=== PATIENT | female | born 2005 | race Caucasian/White ===

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

== ENCOUNTER → 2023-05-27 | Emergency (ER) | payer BC ==
[~2023-05-27] MED LIST: CEFTRIAXONE 1000 MG/VIAL ONE
--- OUTSIDE RECORDS SUMMARY | 2023-05-27 17:38 | XMS REPORT | Continuity of Care Document ---
Author Name Unknown Address [address] [facility] [address] [place] [address] [facility] thconnect Address [address] [facility] [place] [address] Care Team Providers Care Restaurant Hospitality Manager Name Role Phone PCP, PATIENT DOES NOT HAVE A Primary Care Physic reyes Unavailable JAMES PEREZ Attending Clinician Unavailable La Mueller Attending Clinician Unavailable NEO MADRID Attending Clinician UnavailNeo [place] Attending Clinician Jamse Perez MD Attending Clinician [facility] Attending Clinician Unavailable JAMES PEREZ Admitting Clinician Unavailable Payers Payer Name Policy Type Policy Number Effective Date Expirati on Date Source BCBS FED SELECT [id number] 2019 00:00:00 Problems Condition Name Condition Details Condition Category Status Onset Date Resolution Date Last Treatment Date Treating Clinician Comments Source 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 05-23 00:00: 00 [facility] Pelvic pain Pelvic pain Disease Active 05-23 00:00: 00 [facility] [id number] Obesity (BMI 35.0-39.9 without comorbidit y) Problem [facility] [id number] Vapes nicotine containing substance Problem [facility] Obese class II Body mass index (BMI) of 35 Problem [facility] [id number] Mild intermitte nt asthma without complicati on Problem [facility] [id number] Chronic tonsilliti s Problem [facility] Tobacco user Vaping nicotine dependence , tobacco product Problem [facility] [id number] Irregular periods Problem [facility] Allergies, Adverse Reactions, Alerts Allergy Name Allergy Type Status Severity Reaction(s) Onset Date Inactive Date Treating Clinician Comments Source Amoxicil bita Propensi ty to adverse reaction s Active Unknown - See comments 05-20 00:00: 00 [facility] Clarithr omycin Propensi ty to adverse reaction s Active Palpitations 05-20 00:00: 00 [facility] CLARITHR OMYCIN DRUG INGREDI Active Palpitations 05-20 00:00: 00 [facility] AMOXICIL BITA DRUG INGREDI Active Unknown-Cmnt 05-20 00:00: 00 [facility] clarithr omycin clarithr omycin Active , vomiting, high blood pressure [facility] NO KNOWN ALLERGIE S Drug Class Active [facility] Social History Social Habit Start Date Stop Date Quantity Comments Source History of Tobacco Use Light tobacco smoker [facility] Sexual orientation U [facility] Sex Assigned At 2005 00:00:00 2005 00:00:00 [facility] Smoking Status Start Date Stop Date Source Tobacco smoking consumption unknown [facility] Light tobacco smoker 2022-11-03 00:00:00 [facility] Medications Ordered Medication Name Filled Medication Name Start Date Stop Date Current Medication? Ordering Clinician Indication Dosage Frequency Signature (SIG) Comments Components Source valACYclovi r (VALTREX) 500 mg tablet 3- 00:00: 00 Yes [id number] 500mg Take 1 tablet by mouth in the morning and 1 tablet in the evening. For 3 days with onset of lesion [facility] valACYclovi r (VALTREX) 500 mg tablet 05-20 00:00: 00 Yes [id number] 500mg Take 1 tablet by mouth in the morning and 1 tablet in the evening. For 3 days with onset of lesion [facility] valACYclovi r (VALTREX) 500 mg tablet 05-20 00:00: 00 Yes [id number] 500mg Take 1 tablet by mouth in the morning and 1 tablet in the evening. For 3 days with onset of lesion [facility] valACYclovi r (VALTREX) 500 mg tablet 05-20 00:00: 00 Yes [id number] 500mg Take 1 tablet by mouth in the morning and 1 tablet in the evening. For 3 days with onset of lesion [facility] valACYclovi r (VALTREX) 500 mg tablet 05-20 00:00: 00 Yes [id number] 500mg Take 1 tablet by mouth in the morning and 1 tablet in the evening. For 3 days with onset of lesion [facility] valACYclovi r (VALTREX) 500 mg tablet 05-20 00:00: 00 Yes [id number] 500mg Take 1 tablet by mouth in the morning and 1 tablet in the evening. For 3 days with onset of lesion [facility] valACYclovi r (VALTREX) 500 mg tablet 05-20 00:00: 00 Yes [id number] 500mg Take 1 tablet by mouth in the morning and 1 tablet in the evening. For 3 days with onset of lesion [facility] Flovent HFA 110 MCG/ACT Flovent HFA 110 MCG/ACT No 2{puffs } BID Flovent HFA 110 MCG/ACT Albuterol-I pratropium Albuterol-I pratropium No Albuterol- Ipratropiu m Albuterol Sulfate HFA 108 (90 Base) MCG/ACT Albuterol Sulfate HFA 108 (90 Base) MCG/ACT No 1{puff_ as_need ed} 6xD Albuterol Sulfate HFA 108 (90 Base) MCG/ACT Immunizations Ordered Immunization Name Filled Immunization Name Date Status Comments Source HIB 4 Dose Schedule Unknown Completed [facility] HIB 4 Dose Schedule Unknown Completed [facility] Pediarix (dtap/hep B/ipv) Unknown Completed [facility] Pediarix (dtap/hep B/ipv) Unknown Completed [facility] Pneumococcal 7 Conjugate, PCV7 (Prevnar7) Unknown Completed [facility] Pneumococcal 7 Conjugate, PCV7 (Prevnar7) Unknown Completed [facility] Hep B, Adol or Pedi Dosage Unknown Completed [facility] Vital Signs Vital Name Observation Time Observation Value Comments S brien Systolic blood pressure 2023-05-21 19:42:00 132 mm[Hg] [facility] Diastolic blood pressure 2023-05-21 19:42:00 83 mm[Hg] [facility] Heart rate 2023-05-21 19:42:00 82 /min [facility] Body weight 2023-05-21 19:41:00 127.506 kg [facility] height 2022-11-03 09:00:00 71.00 [in_i] Com [facility] weight 2022-11-03 09:00:00 252.4 [lb_av] Co mmon [facility] temperature 2022-11-03 09:00:00 97.2 [degF] Com [facility] bmi 2022-11-03 09:00:00 35.2 kg/m2 Commo n [facility] oximetry 2022-11-03 09:00:00 96 % Commo n [facility] respiratory rate 2022-11-03 09:00:00 16 /min [facility] blood pressure systolic 2022-11-03 09:00:00 120 mm[Hg] [facility] blood pressure diastolic 2022-11-03 09:00:00 68 mm[Hg] [facility] Procedures Procedure Date / Time Performed Performing Clinicia n Source POCT TEST 2023-05-21 00:00:00 David Madrid [facility] Encounters Start Date/Time End Date/Time Encounter Type Admission Type Attending Clinicians Care Facility Care Department Encounter ID Source 2023-05-26 10:30:34 Outpatient JAMES PEREZ [facility] OCCUPATIONAL THERAPY ASSISTANT [id number] [facility] 2022-11-03 08:14:01 Outpatient La Mueller [facility] [id number] [facility] 2023-05-27 00:00:00 2023-05-27 00:00:00 Outpatient R NEO MADRID [facility] [id number] [facility] 2023-05-25 00:00:00 2023-05-25 00:00:00 Telephone Neo Madrid [facility] 1.0.114 350.1.13.10 4.2.7.2.686 [id number] [facility] 2023-05-24 00:00:00 2023-05-24 00:00:00 Prep For Surgery FowlerLucianaJames [facility] 1.2840.114 350.1.13.10 4.2.7.2.686 [id number] [facility] 2023-05-22 00:00:00 2023-05-22 00:00:00 Patient Secure Msg Neo Madrid [facility] 1.20.114 350.1.13.10 4.2.7.2.686 [id number] [facility] 2023-05-21 14:45:00 2023-05-21 15:00:00 Hide Grader Visit [facility] Neo Madrid [facility] 1.2840.114 350.1.13.10 4.2.7.2.686 [id number] [facility] 2023-05-21 13:40:00 2023-05-21 14:40:31 Outpatient R NEO MADRID [facility] [id number] [facility] 2023-05-21 13:40:00 2023-05-21 14:40:31 Office Visit Neo Madrid [facility] 1.2.840.114 350.1.13.10 4.2.7.2.686 [id number] [facility] 2022-11-03 00:00:00 2022-11-03 00:00:00 OFFICE VISIT NEW PT LEVEL 3 STLMLC STLMLC [id number] [facility] Results Test Description Test Time Test Comments Results Result Co mments Source [facility] [id number] 19:55:00* Test Item Value Reference Range Interpretation Comme nts POCT PREG (test code = 1605) Negative On board controls acceptable with C Line (test code = 3574) Yes POCT PREG LOT # (test code = 3575) POCT PREG TEST DATE ( test code = 3576) [facility] Notes Date/Time Note Provider Source 2023-05-25 13:13:18 qQGamHS3ggDzQItRYy3u 7ovxEOMAcWfYAdnByGQDwK Z7hIK9WIGIPRAPXuYbnSbt1689-38-76P88:13:18F ormatting of this note might be different from the [place]. [address]-9Fzwjdslww encounter XzwyIH8552-82-17P37:13:28Telephone encounter NoteTXT1.2.840.663597.1.13.104.2.7.2.65777 9|[id number] for patient djjk46950-7TyxaUTPOFXEVEWWIijdfycwo C-CDA narrative textUTMBUT - [address] Fzi[id number] QJZKWVZTKTSIPKFR5800-41-51F66:13:281.2.840 .418427.1.72.3.15|1.2.840.219119.1.13.104. 2.7.2.727879_[id number] [facility] 2023-05-25 13:07:48 ogglB4h84iqdxFxZuDrR IJjiwHMEHSoFKB7D6EELdR bL6Y473KPXIs/VrsZmAW386482-77-28Z99:07:48F ormatting of this note might be different from the original.Spoke with pt, pt identified by name and .Pt c/o of heavy menstrual gushes (5-6 episodes a day) that bleeds through extra heavy (level 6) sanitary pad, severe cramping 8.5-10 every time she has an episode and passing large clots since 05/21/2023.Pt states she hasn't taken anything for the pain.Pt declines dizziness or SOB.Pt advised to go to ER for evaluation due to the severity of symptoms and length of time she has been experiencing them.ER warnings reinforced, pt states she will go to ER for evaluation. 80397-6Rmaifmzmp encounter IqczFE5521-52-38T01:13:02Telephone encounter NoteTXT1.2.840.068146.1.13.104.2.7.2.17814 9|[id number] for patient qovv45300-2JbzaTGWIJORLVJHPxrfdhfdk C-CDA narrative text[address] Pmf[id number] SKQQHKYLYAUEFNNO3800-47-18E93:13:021.2.840 .181221.1.72.3.15|1.2.840.027020.1.13.104. 2.7.2.727879_[id number] [facility] 2023-05-25 12:31:21 hBkNJlLffoARVjzqwVMb BjixXLA3ER3rW89XiouoVA ozlzCDOkFL9Q/DHBmhqPTn7499-02-88Y27:31:21F ormatting of this note might be different from the original.Pt returning missed call from nurse. Please call and assist. 33389-2Ftrlatwsf encounter SpckHZ9552-68-14I71:32:18Telephone encounter NoteTXT1.2.840.118241.1.13.104.2.7.2.49211 9|[id number] for patient fugs55474-5KykhRVYAMJVKGXYHedrmshue C-CDA narrative [address] IvmaYcvvkumzcOcrdograjQXIQ8413981243ZFAQVR SSXFOMRHEARJBMHY2491-23-93W91:32:181.2.840 .197109.1.72.3.15|1.2.840.565296.1.13.104. 2.7.2.727879_[id number] [facility] 2023-05-21 14:45:00 M9fZUwz3BZxGXTZDe0uw c8RmTqdta7TuidzQQNvIkA pJfvmCmy+KePnjFos5hyqG3901-05-33A16:45:00F ormatting of this note is different from the original.Images from the original note were not included.Venipuncture collection performed by clean technique on the right anticubitus. Total of 1 attempts were made. Slight pressure and a bandage/dressing were applied to the site(s). The patient experienced no complications. The following specimens were processed according to instructions and sent to [facility] laboratoriesLT BLUELt GreenSST 2REDLAV 2PPTDK GREEN (L)DK GREEN (S)///Fibrosure set BLUE,SST & LAVGRAYDK BLUE (K2)DK BLUE (S)ACDRSTBLOOD CULTURE SETBLOOD CULTURE (AFB AND FUNGUS )VERIFYNOWMonogramTYPENEX (LAV TOP) ARM BAND ON PATIENTZ plasma preservative tube (call lab for tube)ARUPVasoactive Intestinal Peptide (call lab for tube)ARUPFEDEX ( NIPT)URINEURINE CULTUREAPTIMA URINESTOOL 13356-6Snmij DhepJO4091-15-67N48:54:19Nurse NoteTXT1.2.840.124863.1.13.104.2.7.2.67517 9|[id number] for patient ulif88082-5Tsrze NoteLNNARRATIVEFormatted C-CDA narrative [address] RklpNz[id number] VZQDPTGUSNZKXYMQ3104-19-97T63:54:191.2.840 .896518.1.72.3.15|1.2.840.226234.1.13.104. 2.7.2.727879_[id number] [facility]"
[2023-05-27 19:20] LABS: Specific Gravity 1.027 (1.005-1.030); Sqamous Epithelial 20-50 /HPF (None Seen); Urine Bacteria <20 /HPF (<20); Urine Bilirubin NEGATIVE (Negative); Urine Blood 1+ (Negative); Urine Clarity Extremely Turbid (Clear); Urine Color Yellow (Yellow); Urine Crystals Unidentified Few /HPF (None Seen); Urine Culture Reflex Order NOT NEEDED; Urine Glucose NEGATIVE (Negative); Urine Ketones NEGATIVE (Negative); Urine Microscopic Reflex YN ORDER UMIC; Urine Mucus 2+ /HPF (None Seen); Urine Nitrite NEGATIVE (Negative); Urine Protein TRACE (Negative); Urine Urobilinogen Normal (Normal); Urine WBC 20-50 /HPF (<5); Urine WBC Clump Rare /HPF (None Seen)
[2023-05-27 19:47] LABS: Absolute Basophils 0.1 K/uL (0-0.5); Absolute Eosinophils 0.4 K/uL (0-0.5); Absolute Lymphocytes (CBC) 2.5 K/uL (0.7-4.9); Absolute Monocytes 0.7 K/uL (0.1-1.3); Absolute Neutrophil 9.8 K/uL (1.8-8.0); Basophils % 0.8 % (0-1.3); Eosinophils % 3.2 % (0-4.4); Hematocrit 40.8 % (36.0-45.0); Hemoglobin 14.1 g/dL (12.0-15.0); Lymphocytes % 18.6 % (15.3-44.8); MCH 31.1 pg (27.0-35.0); MCHC 34.5 g/dL (32.0-36.0); MPV 9.7 fL (7.6-11.3); Monocytes % 5.5 % (3.3-12.3); Neutrophils % 71.9 % (41.7-73.7); Platelets 254 thou/uL (152-406); RBC Red Blood Cell Count 4.54 M/uL (3.86-4.86)
[2023-05-27 20:13] LABS: BUN Blood Urea Nitrogen 12 mg/dL (7-18); Bicarbonate 27 mEq/L (21-32); Glomerular Filtration Rate 112 ml/min (=/>90); Glucose Level 85 mg/dL (74-106); Sodium Level 138 mEq/L (136-145)
[2023-05-27 20:15] LABS: HCG, Quantitative < 1 mIU/mL (1-3)
--- NOTE | 2023-05-27 21:21 | ER ---
Nurse's Notes [facility] Name: Rosa Saavedra Age: 17 yrs Sex: Female : 2005 Arrival Date: 05/27/2023 Time: 17:34 Bed 16 Private MD: Diagnosis: Polyp of cervix uteri-with bleeding Presentation: 05/26 17:55 Chief complaint: Patient states: on may 20 my director of content and programming told me I had a polyp on iw my cervix and it's been bleeding and clotting , having to change her pad every 2-3 hours. Coronavirus screen: At this time, the client does not indicate any symptoms associated with coronavirus-19. Ebola Screen: Patient negative for fever greater than or equal to 101.5 degrees Fahrenheit, and additional compatible Ebola Virus Disease symptoms Patient denies exposure to infectious person. Patient denies travel to an Ebola-affected area in the 21 days before illness onset. No symptoms or risks identified at this time. Initial Sepsis Screen: Does the patient meet any 2 criteria? No. Patient's initial sepsis screen is negative. Does the patient have a suspected source of infection? No. Patient's initial sepsis screen is negative. Risk Assessment: Do you want to hurt yourself or someone else? Patient reports no desire to harm self or others. Onset of symptoms was May 21, 2023. 17:55 Method Of Arrival: Ambulatory iw 17:55 Acuity: SUSANNAH 3 iw FIELD HAULER: 19:30 unknown, "irregular" nj1 Historical: - Allergies: 17:57 Amoxicillin; iw 17:57 Clarithromycin; iw - Home Meds: 17:58 Valtrex 500 mg Oral tablet [Active]; Albuterol Nebulizer [Active]; iw - PMHx: 17:57 Asthma; tonsillar hypertrophy; iw - Immunization history:: Adult Immunizations not up to date. - Social history:: Smoking status: Reported history of juuling and/or vaping. Screenin:30 [facility] ED Fall Risk Assessment (Adult) History of falling in the last 3 months, nj1 including since admission No falls in past 3 months (0 pts) Confusion or Disorientation No (0 pts) Intoxicated or Sedated No (0 pts) Impaired Gait No (0 pts) Mobility Assist Device Used No (0 pt) Altered Elimination No (0 pt) Score/Fall Risk Level 0 - 2 = Low Risk Oriented to surroundings, Maintained a safe environment, Hourly rounding (assess needs \\T\\ fall precautionary measures) done. Abuse screen: Denies threats or abuse. Denies injuries from another. Nutritional screening: No deficits noted. Tuberculosis screening: No symptoms or risk factors identified. Assessment: 19:30 General: Appears in no apparent distress. comfortable, Behavior is calm, cooperative, nj1 appropriate for age. 19:30 Pain: Denies pain. Neuro: Level of Consciousness is awake, alert, obeys commands, nj1 Oriented to person, place, time, situation. Cardiovascular: Patient's skin is warm and dry. Respiratory: Airway is patent Respiratory effort is even, unlabored. : Reports vaginal bleeding that is bright red, with clots, heavy flow since May 20. 21:08 Reassessment: Patient is alert, oriented x 3, equal unlabored respirations, skin jj7 warm/dry/pink. ASSUMED CARE OF PT. PT SITTING IN BED. NO PAIN OR DISTRESS AT THIS TIME. VS STABLE. CALL PEREZ IN REACH. BF AT BEDSIDE. Vital Signs: 17:55 BP 127 / 87; Pulse 87; Resp 16; Temp 98.4; Pulse Ox 99% on R/A; Weight 129.27 kg; iw Height 5 ft. 11 in. ; Pain 6/10; 19:34 BP 133 / 77 Supine; Pulse 72; nj1 19:34 BP 129 / 84 Sitting; Pulse 78; nj1 19:34 BP 121 / 91 Standing; Pulse 84; nj1 21:08 BP 129 / 89; Pulse 77; Resp 19; Pulse Ox 99% ; jj7 17:55 Body Mass Index 39.75 (129.27 kg, 180.34 cm) - Percentile 98.3 % iw 17:55 Pain Scale: Adult iw ED Course: 17:39 Patient arrived in ED. ae5 17:45 Giovanni Maxwell PA is PHCP. cp 17:57 Triage completed. iw 17:58 Arm band placed on. iw 18:05 Giovanni Maxwell PA is PHCP. cp 18:05 Matt Mcdonald MD is Attending Physician. cp 18:31 Callie Clark RN is Primary Nurse. nj1 19:11 Missed attempt(s): 20 gauge in right antecubital area. Bleeding controlled, band aid aw1 applied, catheter tip intact. 19:30 Patient has correct armband on for positive identification. Bed in low position. Call nj1 light in reach. Adult w/ patient. 19:30 Provided Education on: call light, fall precautions. nj1 19:32 Inserted saline lock: 22 gauge in left antecubital area, using aseptic technique. Blood oe collected. 21:00 Report given to ISABELA COLBERT. nj1 21:00 Assist provider with pelvic exam: Set up pelvic tray. Performed by Giovanni salcedo Patient tolerated well. 21:57 IV discontinued, intact, bleeding controlled, No redness/swelling at site. Pressure jj7 dressing applied. Administered Medications: 21:50 Drug: Rocephin IV 1 grams IV at calculated rate once; Given slow IV push per pharmacy jj7 instructions Route: IV; Rate: calculated rate; Site: left antecubital; 21:58 Follow up: Response: No adverse reaction; IV Status: Completed infusion jj7 Medication: 21:08 VIS not applicable for this client. jj7 Outcome: 21:21 Discharge ordered by MD. mayers 21:57 Discharged to home ambulatory, with significant other, jj7 21:57 Condition: improved 21:57 Instructed on discharge instructions, medication usage, 21:59 Patient left the ED. jj7 Signatures: Riana Acevedo, RN Giovanni Shaver PA PA cp Espinosa, Orlando oe Johnson, Juwairiyah, RN RN jj7 Callie Clark RN RN nj1 Deja Marrero aw1 Ashley Damon aeMalaika
--- NOTE | 2023-05-27 21:22 | EDPHYS ---
Physician Documentation [facility] Name: Rosa Saavedra Age: 17 yrs Sex: Female : 2005 Arrival Date: 05/27/2023 Time: 17:34 Bed 16 Private MD: ED Physician Matt Mcdonald HPI: 05/26 19:00 This 17 yrs old Female presents to ER via Ambulatory with complaints of Bleeding of cp Cervix. 19:00 The patient presents with vaginal bleeding that is heavy, with clots. Onset: The cp symptoms/episode began/occurred about 1 week. Associated signs and symptoms: Pertinent negatives: fever, hematuria, nausea, vomiting. 19:00 Severity of symptoms: in the emergency department the symptoms are unchanged, despite cp home interventions. Patient reports she was diagnosed with polyp on cervix about 1 week ago and has had intermittent heavy bleeding since with passage of clots. Bleeding worse today. Called office of primary excelsior machine tender and was told to go to ED for evaluation . MAYONNAISE MIXER: 19:30 unknown, "irregular" nj1 Historical: - Allergies: 17:57 Amoxicillin; iw 17:57 Clarithromycin; iw - Home Meds: 17:58 Valtrex 500 mg Oral tablet [Active]; Albuterol Nebulizer [Active]; iw - PMHx: 17:57 Asthma; tonsillar hypertrophy; iw - Immunization history:: Adult Immunizations not up to date. - Social history:: Smoking status: Reported history of juuling and/or vaping. ROS: 19:05 Constitutional: Negative for body aches, chills, fever, poor PO intake, cp 19:05 Eyes: Negative for injury, pain, redness, and discharge, cp 19:05 ENT: Negative for drainage from ear(s), ear pain, sore throat, difficulty swallowing, difficulty handling secretions, 19:05 Cardiovascular: Negative for chest pain, edema, palpitations, 19:05 Respiratory: Negative for cough, shortness of breath, wheezing, 19:05 Abdomen/GI: Negative for abdominal pain, vomiting, diarrhea, constipation, 19:05 : Positive for vaginal bleeding, Negative for urinary symptoms, 19:05 Neuro: Negative for altered mental status, dizziness, headache, syncope, near syncope, weakness, 19:05 All other systems are negative, Exam: 19:15 Constitutional: The patient appears in no acute distress, alert, awake, cp non-diaphoretic, non-toxic, well developed, well nourished, anxious, obese, 19:15 Head/Face: Normocephalic, atraumatic. cp 19:15 Eyes: Periorbital structures: appear normal, Conjunctiva: normal, no exudate, no injection, Sclera: no appreciated abnormality, Lids and lashes: appear normal, bilaterally, 19:15 ENT: External ear(s): are unremarkable, Nose: is normal, Mouth: Lips: moist, Oral mucosa: pink and intact, moist, Posterior pharynx: Airway: no evidence of obstruction, patent, 19:15 Chest/axilla: Inspection: normal, 19:15 Cardiovascular: Rate: normal, Rhythm: regular, 19:15 Respiratory: the patient does not display signs of respiratory distress, Respirations: normal, no use of accessory muscles, no retractions, labored breathing, is not present, Breath sounds: are clear throughout, no decreased breath sounds, no stridor, no wheezing, 19:15 Abdomen/GI: Inspection: abdomen appears normal, Palpation: abdomen is soft and non-tender, in all quadrants, 19:15 Back: pain, is absent, ROM is normal, 19:15 Neuro: Orientation: to person, place \\T\\ time. Mentation: is normal, Motor: moves all fours, strength is normal, Sensation: is normal, 21:00 : Pelvic Exam: External exam: is normal, Speculum exam: mild bleeding, os that is cp closed, no tissue in cervix is seen, no tissue in vagina is seen, cervix appears with mild erythema, discharge, malodorous, mild clear drainage, the nurse was present for the exam, Vital Signs: 17:55 BP 127 / 87; Pulse 87; Resp 16; Temp 98.4; Pulse Ox 99% on R/A; Weight 129.27 kg; iw Height 5 ft. 11 in. ; Pain 6/10; 19:34 BP 133 / 77 Supine; Pulse 72; nj1 19:34 BP 129 / 84 Sitting; Pulse 78; nj1 19:34 BP 121 / 91 Standing; Pulse 84; nj1 21:08 BP 129 / 89; Pulse 77; Resp 19; Pulse Ox 99% ; jj7 17:55 Body Mass Index 39.75 (129.27 kg, 180.34 cm) - Percentile 98.3 % iw 17:55 Pain Scale: Adult iw MDM: 18:05 Patient medically screened. cp 20:00 Differential diagnosis: ovarian cyst, pelvic inflammatory disease, urinary tract cp infection, vaginosis. 21:20 Data reviewed: vital signs, nurses notes, lab test result(s). cp 21:20 Consideration of Admission/Observation Escalation of care including cp admission/observation considered. Counseling: I had a detailed discussion with the patient and/or guardian regarding the historical points, exam findings, and any diagnostic results supporting the discharge/admit diagnosis, lab results, the need for outpatient follow up, for definitive care, an OB/Gyne specialist, to return to the emergency department if symptoms worsen or persist or if there are any questions or concerns that arise at home. ED course: VSS. H/H wnl. Will discharge to home to f/u with gynecology. 05/26 18:41 Order name: Basic Metabolic Panel; Complete Time: 20:17 05/26 20:18 Interpretation: Reviewed. 05/26 18:41 Order name: CBC with Diff; Complete Time: 20:17 cp 05/26 20:17 Interpretation: Normal except: WBC 13.60; NEUT A 9.8. cp 05/26 18:41 Order name: Test, Urine; Complete Time: 19:32 cp 05/26 18:41 Order name: Quantitative Hcg; Complete Time: 20:17 cp 05/26 18:41 Order name: Urinalysis w/ reflexes; Complete Time: 19:32 cp 05/26 19:33 Interpretation: Normal except: [facility] Extremely Turbid; UBLD 1+; UPROT TRACE. 05/26 18:41 Order name: Orthostatics; Complete Time: 19:54 cp 05/26 18:41 Order name: IV Saline Lock; Complete Time: 19:54 cp 05/26 18:41 Order name: Labs collected and sent; Complete Time: 19:54 cp 05/26 18:41 Order name: NPO; Complete Time: 19:54 cp 05/26 18:41 Order name: Pelvic Exam Setup; Complete Time: 20:44 cp Administered Medications: 21:50 Drug: Rocephin IV 1 grams IV at calculated rate once; Given slow IV push per pharmacy jj7 instructions Route: IV; Rate: calculated rate; Site: left antecubital; 21:58 Follow up: Response: No adverse reaction; IV Status: Completed infusion jj7 Disposition: 05/27 17:26 Co-signature as Attending Physician, Matt Mcdonald MD I reviewed the patient's care rt provided by the Advanced Practice Provider and agree with the diagnosis and treatment plan. Disposition Summary: 05/27/23 21:21 Discharge Ordered Notes: Location: Home cp Problem: new cp Symptoms: have improved cp Condition: Stable cp Diagnosis - Polyp of cervix uteri - with bleeding cp Followup: cp - With: Private Physician - When: 2 - 3 days - Reason: Recheck today's complaints Discharge Instructions: - Discharge Summary Sheet cp Forms: - Medication Reconciliation Form cp - Thank You Letter cp - Antibiotic Education cp - Prescription Opioid Use cp - Patient Portal Instructions cp - Leadership Thank You Letter cp Prescriptions: - Doxycycline Hyclate 100 mg Oral Tablet - take 1 tablet ORAL route every 12 hours; 20 tablet; Refills: 0, Product cp Selection Permitted Signatures: Dispatcher [employer] Riana Mendoza RN RN Giovanni Ruth PA PA cp Johnson, Juwairiyah, RN RN jj7 Matt Mcdonald MD MD rt
[2023-05-27 22:40] VITALS: BP 129/89; TEMP 98.4; O2SAT 99
== END ==
LOC: ER 17:34
DX: N84.1 Polyp of cervix uteri (principal); Z88.1 Allergy status to other antibiotic agents; Z88.3 Allergy status to other anti-infective agents
CPT/HCPCS: 85025; 81001; 80048; 36415; 81025; 84702; 96374; 99284; J0696

== ENCOUNTER 2023-06-22 23:58 | Emergency (ER) | payer BC ==
--- OUTSIDE RECORDS SUMMARY | 2023-06-23 00:03 | XMS REPORT | Continuity of Care Document ---
Author Name Unknown Address [address] [place] [address] [facility] thconnect Address [address] [place] [address] Care Team Providers Care Process Chemist Name Role Phone Pcp, Patient Does Not Have A Primary Care Physic reyes JAMES PEREZ Attending Clinician Unavailable La Mueller Attending Clinician Unavailable James Perez MD Attending Clinician CHARLIE ANGEL Attending Clinician Unavailable Charlie Laughlin Attending Clinician [phone] NEO MADRID Attending Clinician UnavailNeo [place] Attending Clinician [facility] Attending Clinician Unavailable JAMES PEREZ Admitting Clinician Unavailable Payers Payer Name Policy Type Policy Number Effective Date Expirati on Date Source BCBS FED SELECT [id number] 2019 00:00:00 Problems Condition Name Condition Details Condition Category Status Onset Date Resolution Date Last Treatment Date Treating Clinician Comments Source Obesity (BMI 30-39.9) Obesity (BMI 30-39.9) Disease Active 06-06 00:00: 00 [facility] 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 05-23 00:00: 00 [facility] Pelvic pain Pelvic pain Disease Active 05-23 00:00: 00 [facility] [id number] Vapes nicotine containing substance Problem [facility] Obese class II Body mass index (BMI) of 35 Problem [facility] [id number] Mild intermitte nt asthma without complicati on Problem [facility] [id number] Chronic tonsilliti s Problem [facility] Tobacco user Vaping nicotine dependence , tobacco product Problem [facility] [id number] Irregular periods Problem [facility] Allergies, Adverse Reactions, Alerts Allergy Name Allergy Type Status Severity Reaction(s) Onset Date Inactive Date Treating Clinician Comments Source Amoxicil pradeep Propensi ty to adverse reaction s Active Unknown - See comments 05-20 00:00: 00 [facility] Clarithr omycin Propensi ty to adverse reaction s Active Palpitations 05-20 00:00: 00 [facility] CLARITHR OMYCIN DRUG INGREDI Active Palpitations 05-20 00:00: 00 [facility] AMOXICIL PRADEEP DRUG INGREDI Active Unknown-Cmnt 05-20 00:00: 00 [facility] clarithr omycin clarithr omycin Active , vomiting, high blood pressure [facility] NO KNOWN ALLERGIE S Drug Class Active [facility] Social History Social Habit Start Date Stop Date Quantity Comments Source History of tobacco use Cigarette Smoker [facility] of Social function 2023-06-07 00:00:00 2023-06-07 00:00:00 [facility] Tobacco use and exposure 2023-06-04 00:00:00 2023-06-04 00:00:00 Smokeless tobacco non-user [facility] Tobacco Comment 2023-06-04 00:00:00 2023-06-04 00:00:00 Vapes [facility] Sex Assigned At 2005 00:00:00 2005 00:00:00 [facility] Smoking Status Start Date Stop Date Source Tobacco smoking consumption unknown [facility] Smokes tobacco daily 2023-06-04 00:00:00 [facility] Light tobacco smoker 2022-11-03 00:00:00 [facility] Medications Ordered Medication Name Filled Medication Name Start Date Stop Date Current Medication? Ordering Clinician Indication Dosage Frequency Signature (SIG) Comments Components Source phenoL (CHLORASEPT IC THROAT SPRAY) 1.4 % spray 06-08 00:00: 00 Yes [id number] 1{spray } Take 1 [place] by mouth as needed for Sore throat. [facility] albuterol (PROVENTIL) 2.5 mg /3 mL (0.083 %) nebulizer solution 2.5 mg 06-06 19:30: 00 06-06 18:51 :00 No 2.5mg 2.5 mg, Inhalation , ONCE, 1 dose, On Wed06/07/23 at 1430, Routine [facility] acetaminoph en (TYLENOL) tablet 650 mg 06-06 18:49: 36 06-06 22:08 :22 No 650mg 650 mg, Oral, PRN, 1 dose, Starting on Wed06/07/23 at 1349, Until Wed06/07/23 at 1708, Routine, Pain (scale 1-3), DSU Recovery [facility] ibuprofen (IBU) tablet 800 mg 06-06 18:49: 36 06-06 22:08 :22 No 800mg 800 mg, Oral, PRN, 1 dose, Starting on Wed06/07/23 at 1349, Until Wed06/07/23 at 1708, Routine, Pain (scale 4-6), DSU Recovery [facility] HYDROcodone -acetaminop hen (NORCO 5) 5-325 mg tablet 1 tablet 06-06 18:45: 00 06-06 18:57 :00 No 1{tbl} 1 tablet, Oral, ONCE, 1 dose, On Wed06/07/23 at 1345, Routine [facility] HYDROmorphO ne (DILAUDID) injection 0.2 mg 06-06 18:36: 59 06-06 22:08 :22 No .2mg 0.2 mg, Slow IV Push, Q5MIN PRN, 10 doses, Starting on Wed06/07/23 at 1336, Until Wed06/07/23 at 1708, Routine, Pain (scale 7-10)
U se approved by (Faculty): PACU USE -ANESTHESI A SERVICE-HY DROMORPHON E INJECTIONS [facility] FENTanyl PF (SUBLIMAZE (PF)) injection 25 mcg 06-06 18:36: 59 06-06 22:08 :22 No 25ug 25 mcg, Slow IV Push, Q5MIN PRN, 4 doses, Starting on Wed06/07/23 at 1336, Until Wed06/07/23 at 1708, Routine, Pain (scale 4-6) [facility] ondansetron (ZOFRAN (PF)) injection 4 mg 06-06 18:36: 59 06-06 22:08 :22 No 4mg 4 mg, Slow IV Push, PRN, 1 dose, Starting on Wed06/07/23 at 1336, Until Wed06/07/23 at 1708, Routine, Nausea and Vomiting (N/V) [facility] ferric subsulfate (MONSEL'S) solution 06-06 18:28: 00 06-06 18:49 :28 No PRN, Starting on Wed06/07/23 at 1328, Until Wed06/07/23 at 1349, Routine, Intra-op [facility] ibuprofen 600 mg tablet 06-06 00:00: 00 Yes [id number] 600mg Take 1 tablet by mouth every 6 (six) hours as needed for Pain (scale 4-6) or Pain (scale 1-3). [facility] acetaminoph en (TYLENOL) 325 mg tablet 06-06 00:00: 00 06-07 04:59 :00 Yes [id number] 650mg Take 2 tablets by mouth every 6 (six) hours as needed for Alternate with ibuprofen for pain scale 4-6 or Alternate with ibuprofen for pain scale 1-3. [facility] valACYclovi r (VALTREX) 500 mg tablet 05-20 00:00: 00 Yes [id number] 500mg Take 1 tablet by mouth in the morning and 1 tablet in the evening. For 3 days with onset of lesion [facility] albuterol 2.5 mg/0.5 mL nebulizer solution 03-17 00:00: 00 Yes INHALE 1 VIAL IN NEBULIZER EVERY 4 HOURS NEEDED CONGESTION [facility] Flovent HFA 110 MCG/ACT Flovent HFA 110 MCG/ACT No 2{puffs } BID Flovent HFA 110 MCG/ACT Albuterol-I pratropium Albuterol-I pratropium No Albuterol- Ipratropiu m Albuterol Sulfate HFA 108 (90 Base) MCG/ACT Albuterol Sulfate HFA 108 (90 Base) MCG/ACT No 1{puff_ as_need ed} 6xD Albuterol Sulfate HFA 108 (90 Base) MCG/ACT Immunizations Ordered Immunization Name Filled Immunization Name Date Status Comments Source Pediarix (dtap/hep B/ipv) Unknown Completed [facility] Pneumococcal 7 Conjugate, PCV7 (Prevnar7) Unknown Completed [facility] Pneumococcal 7 Conjugate, PCV7 (Prevnar7) Unknown Completed [facility] Hep B, Adol or Pedi Dosage Unknown Completed [facility] HIB 4 Dose Schedule Unknown Completed [facility] HIB 4 Dose Schedule Unknown Completed [facility] Pediarix (dtap/hep B/ipv) Unknown Completed [facility] Pediarix (dtap/hep B/ipv) Unknown Completed [facility] Pneumococcal 7 Conjugate, PCV7 (Prevnar7) Unknown Completed [facility] Pneumococcal 7 Conjugate, PCV7 (Prevnar7) Unknown Completed [facility] Hep B, Adol or Pedi Dosage Unknown Completed [facility] HIB 4 Dose Schedule Unknown Completed [facility] HIB 4 Dose Schedule Unknown Completed [facility] Pediarix (dtap/hep B/ipv) Unknown Completed [facility] Pediarix (dtap/hep B/ipv) Unknown Completed [facility] Pneumococcal 7 Conjugate, PCV7 (Prevnar7) Unknown Completed [facility] Pneumococcal 7 Conjugate, PCV7 (Prevnar7) Unknown Completed [facility] Hep B, Adol or Pedi Dosage Unknown Completed [facility] HIB 4 Dose Schedule Unknown Completed [facility] HIB 4 Dose Schedule Unknown Completed [facility] Pediarix (dtap/hep B/ipv) Unknown Completed [facility] Vital Signs Vital Name Observation Time Observation Value Comments S ource Systolic blood pressure 2023-06-09 20:43:00 133 mm[Hg] [facility] Diastolic blood pressure 2023-06-09 20:43:00 92 mm[Hg] [facility] Heart rate 2023-06-09 20:43:00 74 /min [facility] Respiratory rate 2023-06-09 20:43:00 19 /min [facility] Body temperature 2023-06-09 19:04:00 36.83 Priti [facility] Body height 2023-06-09 19:04:00 180.3 cm [facility] Body weight 2023-06-09 19:04:00 129.048 kg [facility] BMI 2023-06-09 19:04:00 39.68 kg/m2 [facility] Oxygen saturation in Arterial blood by Pulse oximetry 2023-06-09 19:04:00 100 /min [facility] Systolic blood pressure 2023-06-07 14:14:00 150 mm[Hg] [facility] Diastolic blood pressure 2023-06-07 14:14:00 90 mm[Hg] [facility] Heart rate 2023-06-07 14:14:00 78 /min [facility] Body temperature 2023-06-07 14:14:00 37.61 Priti [facility] Respiratory rate 2023-06-07 14:14:00 18 /min [facility] Body height 2023-06-07 14:14:00 180.3 cm [facility] Body weight 2023-06-07 14:14:00 129.139 kg [facility] BMI 2023-06-07 14:14:00 39.71 kg/m2 [facility] Oxygen saturation in Arterial blood by Pulse oximetry 2023-06-07 14:14:00 99 /min [facility] Systolic blood pressure 2023-05-21 19:42:00 132 mm[Hg] [facility] Diastolic blood pressure 2023-05-21 19:42:00 83 mm[Hg] [facility] Heart rate 2023-05-21 19:42:00 82 /min [facility] Body weight 2023-05-21 19:41:00 127.506 kg [facility] height 2022-11-03 09:00:00 71.00 [in_i] Com [facility] weight 2022-11-03 09:00:00 252.4 [lb_av] Co mmon [facility] temperature 2022-11-03 09:00:00 97.2 [degF] Com [facility] bmi 2022-11-03 09:00:00 35.2 kg/m2 Commo n [facility] oximetry 2022-11-03 09:00:00 96 % Commo n [facility] respiratory rate 2022-11-03 09:00:00 16 /min [facility] blood pressure systolic 2022-11-03 09:00:00 120 mm[Hg] [facility] blood pressure diastolic 2022-11-03 09:00:00 68 mm[Hg] [facility] Procedures Procedure Date / Time Performed Performing Clinician Source BASIC METABOLIC PANEL (NA, K, CL, CO2, GLUCOSE, BUN, CREATININE, CA) 2023-06-09 19:32:00 Charlie Angel [facility] CBC WITH DIFF 2023-06-09 19:32:00 Charlie Angel [facility] PROTHROMBIN TIME / INR 2023-06-09 19:32:00 Giana Angel [facility] ACTIVATED PARTIAL THRMPLAS ISRAEL 2023-06-09 19:32:00 Charlie Angel [facility] HYSTEROSCOPY WITH DILATATION AND CURETTAGE 2023-06-07 16:52:00 James Perez [facility] POLYPECTOMY 2023-06-07 16:52:00 James Perez [facility] POCT TEST 2023-06-07 14:26:00 Margaret Berumen [facility] CONSENT/REFUSAL FOR DIAGNOSIS AND TREATMENT 2023-06-07 13:52:33 Doctor Unassigned, Don[place] Ana [facility] ASSIGNMENT OF BENEFITS 2023-06-07 13:52:14 Docto r Unassigned, [place] [facility] POCT TEST 2023-05-21 00:00:00 David Madrid [facility] Encounters Start Date/Time End Date/Time Encounter Type Admission Type Attending Clinicians Care Facility Care Department Encounter ID Source 2023-05-26 10:30:34 Outpatient R JAMES PEREZ [facility] [employer] [id number] [facility] 2022-11-03 08:14:01 [facility] [id number] [facility] 2023-06-11 00:00:00 2023-06-11 00:00:00 Telephone James Perez [facility] 1.2.840.114 350.1.13.10 4.2.7.2.686 [id number] [facility] 2023-06-09 14:07:00 2023-06-09 16:46:00 Emergency X CHARLIE ANGEL [facility] ERT [id number] [facility] 2023-06-09 14:07:00 2023-06-09 16:46:00 Emergency Charlie Angel [facility] 1.840.114 350.1.13.10 4.2.7.2.686 [id number] [facility] 2023-06-07 08:51:00 2023-06-07 15:01:00 Outpatient R JAMES PEREZ [facility] [employer] [id number] [facility] 2023-06-07 11:14:00 2023-06-07 13:33:00 [place] [facility] 1.840.114 350.1.13.10 4.2.7.2.686 [id number] [facility] 2023-06-03 11:00:00 2023-06-03 11:00:00 Outpatient R NEO MADRID [facility] [id number] [facility] 2023-06-02 00:00:00 2023-06-02 00:00:00 Telephone [place] [facility] 1.840.114 350.1.13.10 4.2.7.2.686 [id number] [facility] 2023-05-27 00:00:00 2023-05-27 00:00:00 Outpatient R NEO MADRID [facility] [id number] [facility] 2023-05-25 00:00:00 2023-05-25 00:00:00 Telephone Neo [place] [facility] 1.840.114 350.1.13.10 4.2.7.2.686 [id number] [facility] 2023-05-24 00:00:00 2023-05-24 00:00:00 Prep [facility] [place] [facility] [address] 1.2840.114 350.1.13.10 4.2.7.2.686 [id number] [facility] 2023-05-22 00:00:00 2023-05-22 00:00:00 Patient Secure Msg [place] [facility] 1.2840.114 350.1.13.10 4.2.7.2.686 [id number] [facility] 2023-05-21 14:45:00 2023-05-21 15:00:00 Assistant Manager Pt Visit [facility] [place] [facility] 1.2.114 350.1.13.10 4.2.7.2.686 [id number] [facility] 2023-05-21 13:40:00 2023-05-21 14:40:31 Outpatient R NEO MADRID [facility] [id number] [facility] 2023-05-21 13:40:00 2023-05-21 14:40:31 Office Visit [place] [facility] 1.2840.114 350.1.13.10 4.2.7.2.686 [id number] [facility] 2022-11-03 00:00:00 2022-11-03 00:00:00 OFFICE VISIT NEW PT LEVEL 3 STLMLC STLMLC [id number] [facility] Results Test Description Test Time Test Comments Results Result Co mments Source [facility] [id number] 20:37:58* Test Item Value Reference Range Interpretation Comme nts APTT Patient (test code = 3173-2) 32 26-36 EDILMA (test code = EDILMA) The [facility] patient population mean normal value for aPTT is 30 seconds. Lab Interpretation (test code = 48831-8) Normal [facility] (NA, K, CL, CO2, GLUCOSE, BUN, CREATININE, CA)2023-06-09 20:01:51* Test Item Value Reference Range Interpretation Comme nts NA (test code = 5991712924) 139 mmol/L 135-145 K (test code = 9250852012) 4.1 mmol/L 3.5-5.0 CL (test code = 7140487571) 112 mmol/L 98-108 H CO2 TOTAL (test code = 9411324496) 19 mmol/L 23-31 L AGAP (test code = 3256760504) 8 2-16 BUN (test code = 9446235501) 15 mg/dL 7-23 GLUCOSE (test code = 0880655733) 89 mg/dL 70-110 CREATININE (test code = 2160-0) 0.51 mg/dL 0.50-1.04 CALCIUM (test code = 5601134278) 8.7 mg/dL 8.6-10.6 eGFR (test code = 37142-4) 138.1 mL/min/1.73m2 CKD-EPI eGFR (2020). Assuming creatinine has been stable day-to-day for at least three months, the eGFR indicates Category G1 (>= 90 mL/min/1.73 m2) Lab Interpretation (test code = 05996-9) Abnormal [facility] EFGH7158-25-58 19:57:50* Test Item Value Reference Range Interpretation Comme nts WBC (test code = 6690-2) 10.43 4.30-11.10 RBC (test code = 789-8) 4.20 3.93-5.25 HGB (test code = 718-7) 13.2 g/dL 11.6-15.0 HCT (test code = 4544-3) 38.3 % 35.7-45.2 MCV (test code = 787-2) 91.2 fL 80.6-95.5 MCH (test code = 785-6) 31.4 pg 25.9-32.8 MCHC (test code = 786-4) 34.5 g/dL 31.6-35.1 RDW-SD (test code = 85059-8) 40.2 fL 39.0-49.9 RDW-CV (test code = 788-0) 12.0 % 12.0-15.5 PLT (test code = 777-3) 257 166-358 MPV (test code = 63344-5) 11.6 fL 9.5-12.9 NRBC/100 WBC (test code = 0529234262) 0.0 0.0-10.0 NRBC x10^3 (test code = 8013595833) See_Comment [Automated messa ge] The system which generated this result transmitted reference range: 10*3/?L. The reference range was not used to interpret this result as normal/abnormal. GRAN MAT (NEUT) % (test code = 770-8) 67.8 % IMM GRAN % (test code = 8068895583) 0.30 % LYMPH % (test code = 736-9) 21.7 % MONO % (test code = 5905-5) 7.2 % EOS % (test code = 713-8) 2.2 % BASO % (test code = 706-2) 0.8 % GRAN MAT x10^3(ANC) (test code = 9034614678) 7.08 10*3/uL 1.88-7.09 IMM GRAN x10^3 (test code = 3916463899) 0.03 10*3/uL 0.00-0.06 LYMPH x10^3 (test code = 731-0) 2.26 10*3/uL 1.32-3.29 MONO x10^3 (test code = 742-7) 0.75 10*3/uL 0.33-0.92 EOS x10^3 (test code = 711-2) 0.23 10*3/uL 0.03-0.39 BASO x10^3 (test code = 704-7) 0.08 10*3/uL 0.01-0.07 H Lab Interpretation (test code = 39090-2) Abnormal [facility] Tlhf2742-19-97 14:31:00* Test Item Value Reference Range Interpretation Comme nts POCT PREG (test code = 1605) Negative On board controls acceptable with C Line (test code = 3574) Yes POCT PREG LOT # (test code = 3575) POCT PREG TEST DATE ( test code = 3576) [facility] Cdvk0046-70-66 19:55:00* Test Item Value Reference Range Interpretation Comme nts POCT PREG (test code = 1605) Negative On board controls acceptable with C Line (test code = 3574) Yes POCT PREG LOT # (test code = 3575) POCT PREG TEST DATE ( test code = 3576) [facility] Wcwd0915-26-30 19:55:00* Test Item Value Reference Range Interpretation Comme nts POCT PREG (test code = 1605) Negative On board controls acceptable with C Line (test code = 3574) Yes POCT PREG LOT # (test code = 3575) POCT PREG TEST DATE ( test code = 3576) [facility] Notes Date/Time Note Provider Source 2023-06-11 13:51:40 TeDGipYcxbPViQg6MPGd VJutaHFdt5KCVcB HbZH/rh5+ng/wVw2c5ArYXQk4P+rm2421-2 3:51:40 Spoke with pt who verified name and .Pt c/o of red/itchy eyes with "busted blood vessels" in her eyes that she started to experience after surgery on 06/07/23.Pt reports she is having intermittent sharp pain in her eye that per pt "feels like I have glass in my eyes". Pt denies having any vision changes, blurry vision, or spots in her vision.Advised pt to do a wash-out at home, gave instructions and use OTC eye drops. Pt vu.Recommended for pt to follow-up with pcp and opthalmologist. Pt vu and reports that she will try and schedule an appt.Gave ER precautions pt vu and did not have any further questions at this time. 85981-4Mqesmjsmd encounter VfxxYW6678-47-32S00:05:32Telephone encounter NoteTXT1.2.840.092591.1.13.104.2.7. 2.292477|[id number] for patient nokx03354-1XecmMMJHKGXBFDYXwksosoxv C-CDA narrative [id number] [facility] RNUT[address] StreetWpa[id number] 7CMGVHGMWIVNXDLCWGBHGXU7954-87-56D5 4:05:321.2.840.083729.1.72.3.15|1.2 .840.912232.1.13.104.2.7.2.727879_2 [id number] Kelly Boggs RN [facility] 2023-06-11 13:03:38 ENMYU1C+TiDUg6YsZb72 Be1E+K63Hjx6edA SKSlH2tYC5YsukPoz6/2W8KiESaea5816-9 3:03:38 Adina Saavedra is a 17 year old female patient calling since procedure has had red eyes from busted blood vessels, wanting to know if she can use eye drops and if so which ones. Please call [phone][id number] [place], [place] - [address] [place] [address] [address]Jmijd: [phone] Sqflkopibmxiud signed by Kerrie Clay at 06/11/2023 1:05 PM QBI98948-4Cxmpwvccq encounter AdjqZZ6606-77-91Y16:05:10Telephone encounter NoteTXT1.2.840.239124.1.13.104.2.7. 2.360487|[id number] for patient zfra21792-7AzhlCBCONXGHMZPZarlqyjjq C-CDA narrative ugra508101228Plaxy [address] Hq[id number] 2IKLFONYNMMUSNHFTAHSGZH1946-27-20D7 3:05:101.2.840.032111.1.72.3.15|1.2 .840.988993.1.13.104.2.7.2.727879_2 [id number] Kerrie Clay [facility] 2023-06-09 16:36:00 Q1RrXDNvC87jRtxAl9V3 4t1bVBETsabz5eL ynqvvfhrsXYv+lGs+6F5jt3KYE0C/06-08T16:36:00 Pt given printed and verbal discharge instructions regarding petechiae, conjunctival hemorrhage of both eyes, elevated blood pressure reading, acute cough, sore throat, encouraged hydration.Pt verbalized understanding of instructions, pt awake alert oriented, resp reg unlabored, skin w/d, color appropriate for race, moves all ext well,pt encouraged to follow up with pcp.Advised to seek medical attention for new/prolonged/worsening of symptoms.PIV d'cd, dressing to site, catheter in tact.Awake, alert oriented, resp reg unlabored, skin w/d, pt leaving amb with steady gait, in no apparent distress, accompanied by significant other. 48364-2Ijvkifrrr department RgxkFU9129-84-23M75:46:13Emergen department NoteTXT1.2.840.021281.1.13.104.2.7. 2.118302|[id number] for patient inyg95123-1NryeHAIRCGEUNBVGqkerlduz C-CDA narrative [id number] ADLER[address] NxbpO[id number] 0CPEIXNSJZJTDBFHUWIBXDS2264-00-57S6 6:46:131.2.840.060542.1.72.3.15|1.2 .840.620751.1.13.104.2.7.2.727879_2 [id number] Charlotte Bergman RN [facility] 2023-06-09 13:58:19 W3ONfTE1AyihL9/Z8Fp7 5CjRjOF8d5o4fC6 QkHscwmLsklrpPV54OCF3u1tgke2y2329-6 3:58:19 Pt to ED CO rash s/p hysteroscopy and polypectomy. Pt presents with petechiae to face and eyes. Reports elevated blood pressure after surgery. Also CO generalized body aches. 92688-3Bawijptzt department Triage xiuxNI8130-16-82P56:06:45[facility] Triage noteTXT1.2.840.664379.1.13.104.2.7. 2.340226|[id number] for patient stdp99343-0Xiiyjhltj department NoteLNNARRATIVEFormatted C-CDA narrative [id number] Mcnally RN[address] Ax[id number] 9HLHNPSGKNNHKSQKGJOXTVW7121-82-88O2 4:06:451.2.840.298788.1.72.3.15|1.2 .840.721119.1.13.104.2.7.2.727879_2 [id number] Alta Mcnally RN [facility] 2023-06-03 12:31:38 1ecudN8kJaJm1BbKFwhT ZO6TL5JJc75M7bv pTjnYpovPLKPz7HQkq45CCfWuvi4a1841-7 :31:38 Spoke with OR posting and they do have availability Wednesday06/07/2023 at 1300.Per provider okay to change.Case moved up to 06/06.Pt notified via Quigot. 36497-1Xhpwgbjke encounter TaepTI9855-41-76R54:33:44Telephone encounter NoteTXT1.2.840.657547.1.13.104.2.7. 2.225665|[id number] for patient mpxb53375-6RuefHTJQMHHLJXDRjhsfwwzl C-CDA narrative [id number] 8LBZXGEOSOASAIYDPEKTACS9630-89-41L1 2:33:441.2.840.875978.1.72.3.15|1.2 .840.859341.1.13.104.2.7.2.727879_2 [id number] [facility] 2023-06-02 16:44:34 E/38W0JXoNLsVtFKE1AM dv4NtNpuT1E4euo /XHXyIogDYZPtyiIF/QftqRY1ZH1132-6 6:44:34 Attempted to call OR posting, no answer at this time, will attempt to call tomorrow morning to check availability. 81053-7Vizwkpbjb encounter MnagEP2710-32-95Y92:45:17Telephone encounter NoteTXT1.2.840.138946.1.13.104.2.7. 2.730691|[id number] for patient ehae20222-7AnwdFHGOZBZNYJPYwaogkygw C-CDA narrative [id number] 7CTIRJVDGEWWJQRXTWQBTRI2102-84-70Q7 6:45:171.2.840.114002.1.72.3.15|1.2 .840.047485.1.13.104.2.7.2.727879_2 [id number] [facility] 2023-06-02 15:29:56 ChRJbO0dNe8lPBLRa+mirella fOt5bzuoZASWKfO LlTGHjvcJ43qWvcVYsDy8LJjdpe2t9140-6 :29:56 Spoke with pt, pt identified by name and .Pt states she went to [facility] in [place] [facility] and was recommended to come in for an ER follow up due to polyp infection, pt was prescribed Doxycycline for the infection and just want to make sure everything looks good to move forward with surgery. 42144-4Epysmggwv encounter QhuhCL1853-48-86I64:39:19Telephone encounter NoteTXT1.2.840.083070.1.13.104.2.7. 2.651046|[id number] for patient ayau26502-7PwhdAOZWUKRXHFKKzjskbycw C-CDA narrative text[address] Ax[id number] 6VRSKCSJDLNZMQIWNNECWLK5981-23-83Z9 5:39:191.2.840.896984.1.72.3.15|1.2 .840.211062.1.13.104.2.7.2.727879_2 [id number] [facility] 2023-06-02 14:41:11 hacpD8fot642nfSB8JAs zWky51AUiBWwgQm aengAMj7HCufn2Dyj1UVd2qL8J2Kw5804-4 :41:11 Attempted to call pt on regarding her apt for tomorrow 06/13/2023, no answer at this time, left vm for pt to call back. 31094-8Xhztxnfdf encounter XcfxKS4952-68-60Z05:41:30Telephone encounter NoteTXT1.2.840.323919.1.13.104.2.7. 2.888647|[id number] for patient lzwp29166-2LyofEZNYIJQMVIAJdcagwsdx C-CDA narrative [id number] 2PKOLUNGIDRCUYZCMRMTACC5490-79-43V0 4:41:301.2.840.644059.1.72.3.15|1.2 .840.857135.1.13.104.2.7.2.727879_2 [id number] [facility] 2023-05-25 13:13:18 tLSjvBC2soIdWTnRCf5a 7ovxEOMAcWfYAdn HtJHVkAG4dIT3VMBFWWBPHqHyvUkm3901-2 3:13:18 [place]. [address]-4Vylyjamgn encounter LpxdCE6717-80-66Q34:13:28Telephone encounter NoteTXT1.2.840.799040.1.13.104.2.7. 2.957982|[id number] for patient gczu35844-5FbjiASMPSVYPDMWLadakeiqr C-CDA narrative [id number] 1JWWSOZHIVJZXYDEIFAHIIU1802-01-75Q5 3:13:281.2.840.216224.1.72.3.15|1.2 .840.574837.1.13.104.2.7.2.727879_2 [id number] [facility] 2023-05-25 13:07:48 zvwgL0u57ismkBcVyKnO TPhemKYUFCjNVX8 W7DIKmIrM0R322RITJi/XkzHjKV835292-8 3-12T13:07:48 Spoke with pt, pt identified by name and [...] she will go to ER for evaluation. 35146-6Fjsyemmad encounter DbxjSH6857-34-52C44:13:02Telephone encounter NoteTXT1.2.840.339059.1.13.104.2.7. 2.342455|[id number] for patient ayyc18034-3GmzdVJZYAMGOQUYUdyabgeot C-CDA narrative text[address] Eh[id number] 3TPOGZBQOQJOSBEAJFYCKAF0860-05-59G3 3:13:021.2.840.319899.1.72.3.15|1.2 .840.448554.1.13.104.2.7.2.727879_2 [id number] [facility] 2023-05-25 12:31:21 hBkNJlLffoARVjzqwVMb LxjwFSN1EP8cD34 TniraJYaiemPZZgUN5Z/MBWjtuFAs1688-3 2:31:21 Pt returning missed call from nurse. Please call and assist. 33164-4Duwnquwvt encounter EhxmXC2821-81-67R41:32:18Telephone encounter NoteTXT1.2.840.995348.1.13.104.2.7. 2.294107|[id number] for patient walx57635-1VohxCBTXJCOYOLWExxaypabn C-CDA narrative text[address] Xu[id number] 8SIKJRFPTNCGNORJUZVMHSE8920-29-93P0 2:32:181.2.840.438092.1.72.3.15|1.2 .840.403977.1.13.104.2.7.2.727879_2 [id number] [facility] 2023-05-21 14:45:00 Y7wSUkq2IGmWOGREh5cz o5WaTojpv9Lulep VDXpYyZpJfvmCmy+GwQegPbz7hlcD4462-6 4:45:00 Images from the original note were not included.Venipuncture collection performed by clean technique on the right anticubitus. Total of 1 attempts were made. Slight pressure and a bandage/dressing were applied to the site(s). The patient experienced no complications. The following specimens were processed according to instructions and sent to [facility] laboratoriesLT BLUELt GreenSST 2REDLAV 2PPTDK GREEN (L)DK GREEN (S)///Fibrosure set BLUE,SST & LAVGRAYDK BLUE (K2)DK BLUE (S)ACDRSTBLOOD CULTURE SETBLOOD CULTURE (AFB AND FUNGUS )VERIFYNOWMonogramTYPENEX (LAV TOP) ARM BAND ON PATIENTZ plasma preservative tube (call lab for tube)ARUPVasoactive Intestinal Peptide (call lab for tube)ARUPFEDEX ( NIPT)URINEURINE CULTUREAPTIMA URINESTOOL 43380-5Awuaz TsjkMD2737-32-35P07:54:19Nurse NoteTXT1.2.840.359205.1.13.104.2.7. 2.204400|[id number] for patient uplb24307-0Omict NoteLNNARRATIVEFormatted C-CDA narrative text[address] Id[id number] 9DCWWCPAEQBSEHCDCAFBPXR7393-10-85K8 4:54:191.2.840.129596.1.72.3.15|1.2 .840.702324.1.13.104.2.7.2.727879_2 [id number] [facility]
[2023-06-23] MEDS ORDERED: ONDANSETRON 4 MG/2 ML VIAL ONE (00:20)
[2023-06-23] MEDS ORDERED: NA CHLORIDE 0.9% 1,000 ML ONE (00:20)
[2023-06-23] MEDS ORDERED: DICYCLOMINE HCL 20 MG/2 ML AMP IM ONE (00:51)
[2023-06-23] MEDS ORDERED: PROMETHAZINE 25 MG TABLET ONE (00:51)
[2023-06-23] MEDS ORDERED: DIPHENOX/ATROP SULF 1 TAB PO ONE (00:52)
[2023-06-23] MEDS ORDERED: KETOROLAC 30 MG/ML INJ ONE (01:30)
[2023-06-23 01:55] LABS: Absolute Basophils 0.2 K/uL (0-0.5); Absolute Eosinophils 0.1 K/uL (0-0.5); Absolute Lymphocytes (CBC) 2.4 K/uL (0.7-4.9); Absolute Monocytes 0.8 K/uL (0.1-1.3); Absolute Neutrophil 17.1 K/uL (1.8-8.0); Basophils % 0.9 % (0-1.3); Eosinophils % 0.5 % (0-4.4); Hematocrit 47.9 % (36.0-45.0); Lymphocytes % 11.4 % (15.3-44.8); MCH 30.7 pg (27.0-35.0); MCHC 33.4 g/dL (32.0-36.0); MCV 91.8 fL (80-100); MPV 10.8 fL (7.6-11.3); Neutrophils % 83.2 % (41.7-73.7); Nucleated Red Blood Cells % 0.1 % (0-0); Platelets 403 thou/uL (152-406); RBC Red Blood Cell Count 5.22 M/uL (3.86-4.86)
[2023-06-23 02:10] LABS: Albumin 3.7 g/dL (3.4-5.0); Albumin/Globulin Ratio 0.9 (1.1-1.8); Anion Gap 10.8 mEq/L (5.0-15.0); Bilirubin Total 0.3 mg/dL (0.2-1.0); Globulin 4.1 g/dL (2.3-3.5); Potassium 3.8 mEq/L (3.5-5.1); Protein, Total 7.8 g/dL (6.4-8.2)
[2023-06-23 02:11] LABS: Specific Gravity > 1.030 (1.005-1.030)
[2023-06-23 02:12] LABS: Specific Gravity >= 1.030 (1.005-1.030); Urine Bilirubin Negative (Negative); Urine Blood Negative (Negative); Urine Clarity Clear (Clear); Urine Color Yellow (Yellow); Urine Glucose Negative (Negative); Urine Ketones Negative (Negative); Urine Nitrite Negative (Negative); Urine Protein 1+ (Negative); Urine Urobilinogen 0.2 mg/dL (0.2-1.0); Urine pH 5.5 (5.0-7.0)
[2023-06-23 02:13] LABS: Sqamous Epithelial <5 /HPF (None Seen); Urine Bacteria <20 /HPF (<20); Urine Culture Reflex Order NOT NEEDED; Urine Microscopic Reflex YN ORDER UMIC; Urine RBC <5 /HPF (None Seen); Urine WBC <5 /HPF (<5)
[2023-06-23 03:37] LABS: Band Neutrophils 15 % (0-1); Blood Morphology Comment NOT SEEN (NOT SEEN); Differential Total Cells Count 100; Lymphocytes 12 % (15-42); Monocytes 1 % (0-10); Platelet Estimate ADEQ; Segmented Neutrophils 72 % (40-80)
--- NOTE | 2023-06-23 06:15 | ER ---
Nurse's Notes [facility] Name: Rosa Saavedra Age: 17 yrs Sex: Female : 2005 Arrival Date: 06/22/2023 Time: 23:58 Bed 16 Private MD: Diagnosis: Acute Gastroenteritis, nausea vomiting and diarrhea Presentation: 06/22 00:23 Chief complaint: Patient states: Nausea, vomiting, diarrhea and abdominal pain onset cm10 today. Pt states that she thinks that she may have food poisoning. Coronavirus screen: Client denies travel out of the [place] in the last 14 days. At this time, the client does not indicate any symptoms associated with coronavirus-19. Ebola Screen: Patient denies travel to an Ebola-affected area in the 21 days before illness onset. No symptoms or risks identified at this time. Initial Sepsis Screen: Does the patient meet any 2 criteria? HR > 90 bpm. No. Patient's initial sepsis screen is negative. Does the patient have a suspected source of infection? No. Patient's initial sepsis screen is negative. Risk Assessment: Do you want to hurt yourself or someone else? Patient reports no desire to harm self or others. Onset of symptoms was June 23, 2023. 00:23 Method Of Arrival: Wheelchair cm10 00:23 Acuity: SUSANNAH 3 cm10 Triage Assessment: 06:36 General: Behavior is calm, cooperative. GI: No signs and/or symptoms were reported kd4 involving the gastrointestinal system. Historical: - Allergies: 00:25 Amoxicillin; cm10 00:25 Clarithromycin; cm10 00:25 PENICILLINS; cm10 - PMHx: 00:25 Asthma; tonsillar hypertrophy; cm10 - Immunization history:: Adult Immunizations up to date. - Infectious Disease History:: Denies. - Social history:: Smoking status: Reported history of juuling and/or vaping. - Family history:: not pertinent. Screenin:26 [facility] ED Fall Risk Assessment (Adult) History of falling in the last 3 months, kd4 including since admission No falls in past 3 months (0 pts). Abuse screen: Denies threats or abuse. Nutritional screening: No deficits noted. Tuberculosis screening: No symptoms or risk factors identified. Assessment: 00:26 General: Appears distressed. Pain: Complains of pain in abdomen Pain currently is 8 out kd4 of 10 on a pain scale. Neuro: No deficits noted. Cardiovascular: No deficits noted. Reports None. Respiratory: No deficits noted. GI: Abdomen is round non-distended, Reports lower abdominal pain, diarrhea, nausea, vomiting. : No signs and/or symptoms were reported regarding the genitourinary system. Musculoskeletal: No deficits noted. 05:27 Reassessment: Patient in bed sleeping, no distress noted. kd4 06:38 Reassessment: d/c instruction given to patient, vss, patient verbalizes understanding kd4 of instruction. Vital Signs: 00:23 BP 141 / 91; Pulse 105; Resp 18; Temp 98.1; Pulse Ox 96% ; Weight 129.73 kg; Height 5 cm10 ft. 11 in. ; Pain 10/10; 02:28 BP 109 / 56; Pulse 67; Resp 20; Pulse Ox 98% on R/A; kd4 03:47 BP 107 / 63; Pulse 66; Resp 18; Pulse Ox 98% on R/A; kd4 05:15 Pulse Ox 96% on R/A; kd4 06:35 BP 119 / 69; Pulse 71; Resp 18; Temp 97.9; Pulse Ox 100% on R/A; Pain 0/10; kd4 00:23 Body Mass Index 39.89 (129.73 kg, 180.34 cm) - Percentile 98.4 % cm10 00:23 Pain Scale: Adult cm10 06:35 Pain Scale: Adult kd4 [place] Coma Score: 00:26 Eye Response: spontaneous(4). Motor Response: obeys commands(6). Verbal Response: kd4 oriented(5). Total: 15. 06:17 Eye Response: spontaneous(4). Motor Response: obeys commands(6). Verbal Response: sp4 oriented(5). Total: 15. ED Course: 00:05 Patient arrived in ED. gm2 00:10 Ravindra Moran MD is Attending Physician. sp4 00:18 Mohinder Siddiqui, SAYRA is Primary Nurse. kd4 00:24 Triage completed. cm10 00:25 Arm band placed on Patient placed in an exam room, on a stretcher. cm10 00:26 Patient has correct armband on for positive identification. Placed in gown. Bed in low kd4 position. Call light in reach. Side rails up X2. Adult w/ patient. Client placed on continuous cardiac and pulse oximetry monitoring. NIBP monitoring applied. disk grinder on. Pulse ox on. 00:48 Inserted saline lock: 20 gauge in left antecubital area, using aseptic technique. kd4 00:48 Initial lab(s) drawn, Urine collected: clean catch specimen, COVID swab sent to lab. kd4 Flu and/or RSV swab sent to lab. 03:37 CT Abd/Pelvis - IV Contrast Only In Process Unspecified. EDMS 06:36 No provider procedures requiring assistance completed. kd4 06:36 IV discontinued, intact. kd4 06:37 Provided Education on: d/c instruction, prescription given. kd4 Administered Medications: 00:47 Drug: NS 0.9% IV 1000 ml IV at 1 bolus Per protocol; 1000 mL bolus Route: IV; Rate: 1 kd4 bolus; Site: left antecubital; 06:41 Follow up: IV Status: Completed infusion kd4 00:47 Drug: Ondansetron IVP 4 mg IVP once; over 2 minutes Route: IVP; Site: left antecubital; kd4 06:41 Follow up: Response: No adverse reaction kd4 00:59 Drug: Dicyclomine IM 20 mg IM once Route: IM; Site: left deltoid; kd4 06:40 Follow up: Response: No adverse reaction kd4 00:59 Drug: Promethazine PO 25 mg PO once Route: PO; kd4 06:41 Follow up: Response: No adverse reaction kd4 00:59 Drug: Diphenoxylate-Atropine PO 2 tabs PO once Route: PO; kd4 06:41 Follow up: Response: No adverse reaction kd4 01:00 Not Given (Duplicate Order): ns 0.9% 1000 ml IV at 1 bolus Per protocol; 1000 mL bolus kd4 01:31 Drug: Ketorolac IVP 30 mg IVP once Route: IVP; Site: left antecubital; kd4 06:40 Follow up: Response: No adverse reaction kd4 Medication: 00:26 VIS not applicable for this client. kd4 Outcome: 06:15 Discharge ordered by sp4 06:36 Discharged to home kd4 06:36 Condition: good 06:36 Discharge instructions given to patient, Prescriptions given X 2, 06:42 Patient left the ED. kd4 Signatures: Dispatcher [employer] Ravindra Womack MD MD sp4 Cait Reinoso RN RN cm10 Tatyana Alvarado 2 Mohinder Siddiqui RN RN kd4
--- NOTE | 2023-06-23 06:16 | EDPHYS ---
Physician Documentation [facility] Name: Rosa Saavedra Age: 17 yrs Sex: Female : 2005 Arrival Date: 06/22/2023 Time: 23:58 Bed 16 Private MD: ED Physician Ravindra Moran HPI: 06/22 00:10 This 17 yrs old Female presents to ER via Unassigned with complaints of sp4 Nausea/Vomiting/Diarrhea. 06:17 17-year-old female presents with nausea vomiting and diarrhea starting yesterday. . sp4 Historical: - Allergies: 00:25 Amoxicillin; cm10 00:25 Clarithromycin; cm10 00:25 PENICILLINS; cm10 - PMHx: 00:25 Asthma; tonsillar hypertrophy; cm10 - Immunization history:: Adult Immunizations up to date. - Infectious Disease History:: Denies. - Social history:: Smoking status: Reported history of juuling and/or vaping. - Family history:: not pertinent. ROS: 06:17 Constitutional: Negative for fever, chills, and weight loss, positive nausea , vomiting sp4 and diarrhea 06:17 All other systems are negative, Exam: 06:17 Constitutional: This is a well developed, well nourished patient who is awake, alert, sp4 and in no acute distress. Head/Face: Normocephalic, atraumatic. Eyes: Pupils equal round and reactive to light, extra-ocular motions intact. Lids and lashes normal. Conjunctiva and sclera are not injected. Cornea within normal limits. Periorbital areas with no swelling, redness, or edema. ENT: Nares patent. No nasal discharge, no septal abnormalities noted. Tympanic membranes are normal and external auditory canals are clear. Oropharynx with no redness, swelling, or masses, exudates, or evidence of obstruction, uvula midline. Mucous membranes moist. Neck: Trachea midline, no thyromegaly or masses palpated, and no cervical lymphadenopathy. Supple, full range of motion without nuchal rigidity, or vertebral point tenderness. Chest/axilla: Normal chest wall appearance and motion. Nontender with no deformity. No lesions are appreciated. Cardiovascular: Regular rate and rhythm with a normal S1 and S2. No gallops, murmurs, or rubs. Normal PMI, no JVD. No pulse deficits. Respiratory: Lungs have equal breath sounds bilaterally, clear to auscultation and percussion. No rales, rhonchi or wheezes noted. No increased work of breathing, no retractions or nasal flaring. Abdomen/GI: Soft, with normal bowel sounds. No distension or tympany. No guarding or rebound. No evidence of tenderness throughout. Back: No spinal tenderness. No costovertebral tenderness. Skin: Warm, dry with normal turgor. Normal color with no rashes, no lesions, and no evidence of cellulitis. MS/ Extremity: Pulses equal, no cyanosis. Neurovascular intact. Full, normal range of motion. Neuro: Awake and alert, GCS 15, oriented to person, place, time, and situation. Cranial nerves II-XII grossly intact. Motor strength 5/5 in all extremities. Sensory grossly intact. Psych: Awake, alert, with orientation to person, place and time. Behavior, mood, and affect are within normal limits Vital Signs: 00:23 BP 141 / 91; Pulse 105; Resp 18; Temp 98.1; Pulse Ox 96% ; Weight 129.73 kg; Height 5 cm10 ft. 11 in. ; Pain 10/10; 02:28 BP 109 / 56; Pulse 67; Resp 20; Pulse Ox 98% on R/A; kd4 03:47 BP 107 / 63; Pulse 66; Resp 18; Pulse Ox 98% on R/A; kd4 05:15 Pulse Ox 96% on R/A; kd4 06:35 BP 119 / 69; Pulse 71; Resp 18; Temp 97.9; Pulse Ox 100% on R/A; Pain 0/10; kd4 00:23 Body Mass Index 39.89 (129.73 kg, 180.34 cm) - Percentile 98.4 % cm10 00:23 Pain Scale: Adult cm10 06:35 Pain Scale: Adult kd4 [place] Coma Score: 00:26 Eye Response: spontaneous(4). Motor Response: obeys commands(6). Verbal Response: kd4 oriented(5). Total: 15. 06:17 Eye Response: spontaneous(4). Motor Response: obeys commands(6). Verbal Response: sp4 oriented(5). Total: 15. MDM: 00:12 Patient medically screened. sp4 06:11 ED course: CLINICAL HISTORY: ABD PAIN COMPARISON: 10/16/2022. TECHNIQUE: CTABDOMEN PELVIS sp4 WITH IV CONTRAST on 06/23/2023 2:57 AM CDT This exam was performed according to our departmental dose-optimization program, which includes automated exposure control, adjustment of the mA and/or kV according to patient size and/or use of iterative reconstruction technique. FINDINGS: Lower lungs are clear. Abdomen: Liver is fatty in attenuation. There is no biliary dilatation. Gallbladder is normal in appearance. The pancreas and spleen are normal in appearance. The adrenal glands and kidneys are unremarkable. Abdominal aorta is normal in course and caliber without aneurysm. There is no free air. There is no retroperitoneal adenopathy. Pelvis: There is no bowel obstruction. Urinary bladder is unremarkable. There is small amount of free pelvic fluid. Uterus is normal in size. Uterus is normal in size. Appendix is normal. Skeleton: There are no acute osseous findings. No suspicious bony lesions. IMPRESSION: No acute process.. 06:17 Differential diagnosis: Nonspecific abd pain, gastritis, viral gastroenteritis, sp4 gastroenteritis. Data reviewed: vital signs, nurses notes, lab test result(s), radiologic studies, CT scan. ED course: CT is negative, stable for discharge home. 06/22 00:12 Order name: CBC with Diff sp4 06/22 00:12 Order name: CMP; Complete Time: 02:56 sp4 06/22 00:12 Order name: Lipase; Complete Time: 02:56 sp4 06/22 00:12 Order name: Test, Urine; Complete Time: 02:56 sp4 06/22 00:12 Order name: Influenza Screen (a \T\ B); Complete Time: 02:56 sp4 06/22 01:49 Order name: SARS-COV-2 RT PCR; Complete Time: 02:56 EDMS 06/22 02:04 Order name: Manual Differential EDMS 06/22 02:12 Order name: Urinalysis w/ reflexes; Complete Time: 02:56 EDMS 06/22 02:57 Order name: CT Abd/Pelvis - IV Contrast Only sp4 06/22 00:12 Order name: IV Saline Lock; Complete Time: 02:53 sp4 06/22 00:12 Order name: Labs collected and sent; Complete Time: 02:53 sp4 Administered Medications: 00:47 Drug: NS 0.9% IV 1000 ml IV at 1 bolus Per protocol; 1000 mL bolus Route: IV; Rate: 1 kd4 bolus; Site: left antecubital; 06:41 Follow up: IV Status: Completed infusion kd4 00:47 Drug: Ondansetron IVP 4 mg IVP once; over 2 minutes Route: IVP; Site: left antecubital; kd4 06:41 Follow up: Response: No adverse reaction kd4 00:59 Drug: Dicyclomine IM 20 mg IM once Route: IM; Site: left deltoid; kd4 06:40 Follow up: Response: No adverse reaction kd4 00:59 Drug: Promethazine PO 25 mg PO once Route: PO; kd4 06:41 Follow up: Response: No adverse reaction kd4 00:59 Drug: Diphenoxylate-Atropine PO 2 tabs PO once Route: PO; kd4 06:41 Follow up: Response: No adverse reaction kd4 01:00 Not Given (Duplicate Order): ns 0.9% 1000 ml IV at 1 bolus Per protocol; 1000 mL bolus kd4 01:31 Drug: Ketorolac IVP 30 mg IVP once Route: IVP; Site: left antecubital; kd4 06:40 Follow up: Response: No adverse reaction kd4 Disposition Summary: 06/23/23 06:15 Discharge Ordered Problem: new sp4 Symptoms: have improved sp4 Condition: Stable sp4 Diagnosis - Acute Gastroenteritis, nausea vomiting and diarrhea sp4 Followup: sp4 - With: Private Physician - When: 7 - 10 days - Reason: Recheck today's complaints Discharge Instructions: - Discharge Summary Sheet sp4 - Clear Liquid Diet, Adult, Jhfc-ot-Srlc sp4 Forms: - Patient Portal Instructions sp4 Prescriptions: - Lomotil 2.5-0.025 mg Oral tablet - take 1 tablet ORAL route every 6 hours As needed PRN nausea; 30 tablet; sp4 Refills: 0, Product Selection Permitted - ondansetron 8 mg Oral Tablet,disintegrating - take 1 tablet ORAL route every 8 hours PRN nausea; 30 tablet; Refills: 0, sp4 Product Selection Permitted Signatures: Dispatcher [employer] Ravindra Womack MD MD sp4 Cait Reinoso RN RN cm10 Mohinder Siddiqui RN RN kd4 Corrections: (The following items were deleted from the chart) 00:13 00:13 CBC+H.LAB.BRZ ordered. EDMS EDMS 00:13 00:13 COMPREHENSIVE METABOLIC PANEL+C.LAB.BRZ ordered. EDMS EDMS 00:13 00:13 LIPASE+C.LAB.BRZ ordered. EDMS EDMS 00:13 00:13 Test, Urine+UC.LAB.BRZ ordered. EDMS EDMS 01:49 00:13 SARS-COV-2 Antigen Rapid+I.LAB.BRZ ordered. EDMS EDMS 02:14 00:13 Urinalysis+U.LAB.BRZ ordered. EDMS EDMS
[2023-06-23 07:41] VITALS: BP 119/69; TEMP 97.9; O2SAT 100
--- NOTE | 2023-06-23 14:26 | RAD REPORT ---
CLINICAL HISTORY: ABD PAIN COMPARISON: 10/16/2022. TECHNIQUE: CT ABDOMEN PELVIS WITH IV CONTRAST on 06/23/2023 2:57 AM CDT This exam was performed according to our departmental dose-optimization program, which includes autom ated exposure control, adjustment of the mA and/or kV according to patient size and/or use of iterati ve reconstruction technique. FINDINGS: Lower lungs are clear. Abdomen: Liver is fatty in attenuation. There is no biliary dilatation. Gallbladder is normal in appe arance. The pancreas and spleen are normal in appearance. The adrenal glands and kidneys are unremark able. Abdominal aorta is normal in course and caliber without aneurysm. There is no free air. There is no r etroperitoneal adenopathy. Pelvis: There is no bowel obstruction. Urinary bladder is unremarkable. There is small amount of free pelvic fluid. Uterus is normal in size. Uterus is normal in size. Appendix is normal. Skeleton: There are no acute osseous findings. No suspicious bony lesions. IMPRESSION: No acute process. Electronically signed by: Coy Naylor MD 06/23/2023 05:52 AM CDT Due to temporary technical issues with the PACS/Fluency reporting system, reports are being signed by the in house radiologists without review as a courtesy to insure prompt reporting. The interpreting radiologist is fully responsible for the content of the report.
== END 2023-06-23 06:42 | disposition home or self-care (01) ==
LOC: ER 23:58
DX: K52.9 Noninfective gastroenteritis and colitis, unspecified (principal); Z11.52 Encounter for screening for COVID-19; Z88.0 Allergy status to penicillin; Z88.1 Allergy status to other antibiotic agents; Z88.3 Allergy status to other anti-infective agents
CPT/HCPCS: 85025; 81001; 36415; 81025; 83690; 80053; 87635; 87804 ×2; 74177; Q9967; Q0169; J0500; J2405; J7030

== ENCOUNTER 2023-08-14 07:13 | Emergency (ER) | payer BC ==
--- OUTSIDE RECORDS SUMMARY | 2023-08-14 07:16 | XMS REPORT | Continuity of Care Document ---
Author Name Unknown Address [address] [facility] [address] [place] [address] [facility] thconnect Address [address] [place] [address] Care Team Providers Care Dividend Clerk Name Role Phone Pcp, Patient Does Not Have A Primary Care Physic reyes JAMES PEREZ Attending Clinician Unavailable La Mueller Attending Clinician Unavailable NEO MADRID Attending Clinician UnavailNeo [place] Attending Clinician James Perez MD Attending Clinician [phone] CHARLIE ANGEL Attending Clinician Unavailable Charlie Laughlin Attending Clinician [facility] Attending Clinician Unavailable JAMES PEREZ Admitting Clinician Unavailable Payers Payer Name Policy Type Policy Number Effective Date Expirati on Date Source BCBS FED SELECT [id number] 2019 00:00:00 Problems Condition Name Condition Details Condition Category Status Onset Date Resolution Date Last Treatment Date Treating Clinician Comments Source Obesity (BMI 30-39.9) Obesity (BMI 30-39.9) Disease Active 06-06 00:00: 00 [facility] 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 05-23 00:00: 00 [facility] Pelvic pain Pelvic pain Disease Active 05-23 00:00: 00 [facility] [id number] Vapes nicotine containing substance Problem [facility] Obese class II Body mass index (BMI) of 35 Problem [facility] [id number] Mild intermitte nt asthma without complicati on Problem [facility] [id number] Chronic tonsilliti s Problem [facility] Tobacco user Vaping nicotine dependence , tobacco product Problem [facility] [id number] Irregular periods Problem [facility] Allergies, Adverse Reactions, Alerts Allergy Name Allergy Type Status Severity Reaction(s) Onset Date Inactive Date Treating Clinician Comments Source Amoxicil bita Propensi ty to adverse reaction s Active Unknown - See comments 05-20 00:00: 00 [facility] Clarithr omycin Propensi ty to adverse reaction s Active Palpitations 05-20 00:00: 00 [facility] CLARITHR OMYCIN DRUG INGREDI Active Palpitations 05-20 00:00: 00 [facility] AMOXICIL BITA DRUG INGREDI Active Unknown-Cmnt 05-20 00:00: 00 [facility] clarithr omycin clarithr omycin Active , vomiting, high blood pressure [facility] NO KNOWN ALLERGIE S Drug Class Active [facility] Social History Social Habit Start Date Stop Date Quantity Comments Source History of tobacco use Cigarette Smoker [facility] of Social function 2023-06-07 00:00:00 2023-06-07 00:00:00 [facility] Tobacco use and exposure 2023-06-04 00:00:00 2023-06-04 00:00:00 Smokeless tobacco non-user [facility] Tobacco Comment 2023-06-04 00:00:00 2023-06-04 00:00:00 Vapes [facility] Sex assigned at 2003 00:00:00 2005 00:00:00 [facility] Smoking Status Start Date Stop Date Source Tobacco smoking consumption unknown [facility] Smokes tobacco daily 2023-06-04 00:00:00 [facility] Light tobacco smoker 2022-11-03 00:00:00 [facility] Medications Ordered Medication Name Filled Medication Name Start Date Stop Date Current Medication? Ordering Clinician Indication Dosage Frequency Signature (SIG) Comments Components Source levonorgest reL (MIRENA) IUD 1 Device 07-22 23:00: 00 07-22 22:05 :00 No [id number] 1{devic e} 1 Device, Intrauteri ne, ONCE, 1 dose, On Wed07/23/23 at 1800, Routine [facility] nystatin-tr iamcinolone cream 07-22 00:00: 00 07-30 04:59 :00 No [id number] Apply to area(s) 2 (two) times daily for 7 days. [facility] phenoL (CHLORASEPT IC THROAT SPRAY) 1.4 % spray 06-08 00:00: 00 Yes [id number] 1{spray } Take 1 [place] by mouth as needed for Sore throat. [facility] albuterol (PROVENTIL) 2.5 mg /3 mL (0.083 %) nebulizer solution 2.5 mg 06-06 19:30: 00 06-06 18:51 :00 No 2.5mg 2.5 mg, Inhalation , ONCE, 1 dose, On Wed06/07/23 at 1430, Routine [facility] acetaminoph en (TYLENOL) tablet 650 mg 06-06 18:49: 36 06-06 22:08 :22 No 650mg 650 mg, Oral, PRN, 1 dose, Starting on Wed06/07/23 at 1349, Until Wed06/07/23 at 1708, Routine, Pain (scale 1-3), DSU Recovery [facility] ibuprofen (IBU) tablet 800 mg 06-06 18:49: 36 06-06 22:08 :22 No 800mg 800 mg, Oral, PRN, 1 dose, Starting on Wed06/07/23 at 1349, Until Wed06/07/23 at 1708, Routine, Pain (scale 4-6), DSU Recovery [facility] HYDROcodone -acetaminop hen (NORCO 5) 5-325 mg tablet 1 tablet 06-06 18:45: 00 06-06 18:57 :00 No 1{tbl} 1 tablet, Oral, ONCE, 1 dose, On Wed06/07/23 at 1345, Routine [facility] HYDROmorphO ne (DILAUDID) injection 0.2 mg 06-06 18:36: 59 06-06 22:08 :22 No .2mg 0.2 mg, Slow IV Push, Q5MIN PRN, 10 doses, Starting on Wed06/07/23 at 1336, Until Wed06/07/23 at 1708, Routine, Pain (scale 7-10)
U se approved by (Faculty): PACU USE -ANESTHESI A SERVICE-HY DROMORPHON E INJECTIONS [facility] FENTanyl PF (SUBLIMAZE (PF)) injection 25 mcg 06-06 18:36: 59 06-06 22:08 :22 No 25ug 25 mcg, Slow IV Push, Q5MIN PRN, 4 doses, Starting on Wed06/07/23 at 1336, Until Wed06/07/23 at 1708, Routine, Pain (scale 4-6) [facility] ondansetron (ZOFRAN (PF)) injection 4 mg 06-06 18:36: 59 06-06 22:08 :22 No 4mg 4 mg, Slow IV Push, PRN, 1 dose, Starting on Wed06/07/23 at 1336, Until Wed06/07/23 at 1708, Routine, Nausea and Vomiting (N/V) [facility] ferric subsulfate (MONSEL'S) solution 06-06 18:28: 00 06-06 18:49 :28 No PRN, Starting on Wed06/07/23 at 1328, Until Wed06/07/23 at 1349, Routine, Intra-op [facility] ibuprofen 600 mg tablet 06-06 00:00: 00 Yes [id number] 600mg Take 1 tablet by mouth every 6 (six) hours as needed for Pain (scale 4-6) or Pain (scale 1-3). [facility] acetaminoph en (TYLENOL) 325 mg tablet 06-06 00:00: 00 06-07 04:59 :00 Yes [id number] 650mg Take 2 tablets by mouth every 6 (six) hours as needed for Alternate with ibuprofen for pain scale 4-6 or Alternate with ibuprofen for pain scale 1-3. [facility] valACYclovi r (VALTREX) 500 mg tablet 05-20 00:00: 00 Yes [id number] 500mg Take 1 tablet by mouth in the morning and 1 tablet in the evening. For 3 days with onset of lesion [facility] albuterol 2.5 mg/0.5 mL nebulizer solution 03-17 00:00: 00 Yes INHALE 1 VIAL IN NEBULIZER EVERY 4 HOURS NEEDED CONGESTION [facility] Flovent HFA 110 MCG/ACT Flovent HFA [...] Comments Source Pediarix (dtap/hep B/ipv) Unknown Completed [facility] Pneumococcal 7 Conjugate, PCV7 (Prevnar7) Unknown Completed [facility] Pneumococcal 7 Conjugate, PCV7 (Prevnar7) Unknown Completed [facility] Hep B, Adol or Pedi Dosage Unknown Completed [facility] HIB 4 Dose Schedule Unknown Completed [facility] HIB 4 Dose Schedule Unknown Completed [facility] Pediarix (dtap/hep B/ipv) Unknown Completed [facility] Pediarix (dtap/hep B/ipv) Unknown Completed [facility] Pneumococcal 7 Conjugate, PCV7 (Prevnar7) Unknown Completed [facility] Pneumococcal 7 Conjugate, PCV7 (Prevnar7) Unknown Completed [facility] Hep B, Adol or Pedi Dosage Unknown Completed [facility] HIB 4 Dose Schedule Unknown Completed [facility] HIB 4 Dose Schedule Unknown Completed [facility] Pediarix (dtap/hep B/ipv) Unknown Completed [facility] Pediarix (dtap/hep B/ipv) Unknown Completed [facility] Pneumococcal 7 Conjugate, PCV7 (Prevnar7) Unknown Completed [facility] Pneumococcal 7 Conjugate, PCV7 (Prevnar7) Unknown Completed [facility] Hep B, Adol or Pedi Dosage Unknown Completed [facility] HIB 4 Dose Schedule Unknown Completed [facility] HIB 4 Dose Schedule Unknown Completed [facility] Pediarix (dtap/hep B/ipv) Unknown Completed [facility] Vital Signs Vital Name Observation Time Observation Value Comments S ource Systolic blood pressure 2023-07-23 16:12:00 127 mm[Hg] [facility] Diastolic blood pressure 2023-07-23 16:12:00 89 mm[Hg] [facility] Heart rate 2023-07-23 16:12:00 76 /min [facility] Body weight 2023-07-23 16:12:00 130.409 kg [facility] Systolic blood pressure 2023-06-29 16:23:00 133 mm[Hg] [facility] Diastolic blood pressure 2023-06-29 16:23:00 83 mm[Hg] [facility] Heart rate 2023-06-29 16:23:00 85 /min Un[facility] Body temperature 2023-06-29 16:23:00 37 Priti [facility] Body weight 2023-06-29 16:23:00 128.822 kg [facility] Systolic blood pressure 2023-06-09 20:43:00 133 mm[Hg] [facility] Diastolic blood pressure 2023-06-09 20:43:00 92 mm[Hg] [facility] Heart rate 2023-06-09 20:43:00 74 /min Un[facility] Respiratory rate 2023-06-09 20:43:00 19 /min [facility] Body temperature 2023-06-09 19:04:00 36.83 Priti [facility] Body height 2023-06-09 19:04:00 180.3 cm [facility] Body weight 2023-06-09 19:04:00 129.048 kg [facility] BMI 2023-06-09 19:04:00 39.68 kg/m2 [facility] Oxygen saturation in Arterial blood by Pulse oximetry 2023-06-09 19:04:00 100 /min [facility] Systolic blood pressure 2023-06-07 14:14:00 150 mm[Hg] [facility] Diastolic blood pressure 2023-06-07 14:14:00 90 mm[Hg] [facility] Heart rate 2023-06-07 14:14:00 78 /min Un[facility] Body temperature 2023-06-07 14:14:00 37.61 Priti [facility] Respiratory rate 2023-06-07 14:14:00 18 /min [facility] Body height 2023-06-07 14:14:00 180.3 cm [facility] Body weight 2023-06-07 14:14:00 129.139 kg [facility] BMI 2023-06-07 14:14:00 39.71 kg/m2 [facility] Oxygen saturation in Arterial blood by Pulse oximetry 2023-06-07 14:14:00 99 /min [facility] Systolic blood pressure 2023-05-21 19:42:00 132 mm[Hg] [facility] Diastolic blood pressure 2023-05-21 19:42:00 83 mm[Hg] [facility] Heart rate 2023-05-21 19:42:00 82 /min [facility] Body weight 2023-05-21 19:41:00 127.506 kg [facility] height 2022-11-03 09:00:00 71.00 [in_i] Com [facility] weight 2022-11-03 09:00:00 252.4 [lb_av] Co [facility] temperature 2022-11-03 09:00:00 97.2 [degF] Com [facility] bmi 2022-11-03 09:00:00 35.2 kg/m2 Commo n [facility] oximetry 2022-11-03 09:00:00 96 % Comm n [facility] respiratory rate 2022-11-03 09:00:00 16 /min [facility] blood pressure systolic 2022-11-03 09:00:00 120 mm[Hg] [facility] blood pressure diastolic 2022-11-03 09:00:00 68 mm[Hg] [facility] Procedures Procedure Date / Time Performed Performing Clinician Source POCT TEST 2023-07-23 16:56:00 David Madrid [facility] BASIC METABOLIC PANEL (NA, K, CL, CO2, GLUCOSE, BUN, CREATININE, CA) 2023-06-09 19:32:00 Charlie Angel [facility] CBC WITH DIFF 2023-06-09 19:32:00 Charlie Angel [facility] PROTHROMBIN TIME / INR 2023-06-09 19:32:00 Giana Angel [facility] ACTIVATED PARTIAL THRMPLAS ISRAEL 2023-06-09 19:32:00 Charlie Angel [facility] HYSTEROSCOPY WITH DILATATION AND CURETTAGE 2023-06-07 16:52:00 James Perez [facility] POLYPECTOMY 2023-06-07 16:52:00 James Perez [facility] POCT TEST 2023-06-07 14:26:00 Margaret Berumen [facility] CONSENT/REFUSAL FOR DIAGNOSIS AND TREATMENT 2023-06-07 13:52:33 Doctor Unassigned, [place] [facility] ASSIGNMENT OF BENEFITS 2023-06-07 13:52:14 Docto r Unassigned, [place] [facility] POCT TEST 2023-05-21 00:00:00 David Madrid [facility] Encounters Start Date/Time End Date/Time Encounter Type Admission Type Attending Clinicians Care Facility Care Department Encounter ID Source 2023-05-26 10:30:34 Outpatient R JAMES PEREZ [facility] 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 [id number] [facility] 2023-07-24 00:00:00 2023-07-27 11:40:09 Patient Secure Msg [place] [facility] 1.2.840.114 350.1.13.10 4.2.7.2.686 [id number] [facility] 2023-07-23 11:00:00 2023-07-23 12:10:56 Outpatient R NEO MADRID [facility] [id number] [facility] 2023-07-23 11:00:00 2023-07-23 12:10:56 Office Visit [place] [facility] 1..840.114 350.1.13.10 4.2.7.2.686 [id number] [facility] 2023-06-29 11:40:00 2023-06-29 13:11:17 Outpatient R JAMES PEREZ [facility] [id number] [facility] 2023-06-29 11:40:00 2023-06-29 13:11:17 [facility] [place] [facility] 1.2.840.114 350.1.13.10 4.2.7.2.686 [id number] [facility] 2023-06-11 00:00:00 2023-06-11 00:00:00 Telephone [place] [facility] 1.2.840.114 350.1.13.10 4.2.7.2.686 [id number] [facility] 2023-06-09 14:07:00 2023-06-09 16:46:00 Emergency X JEANNE CHARLIE [facility] ERT [id number] [facility] 2023-06-09 14:07:00 2023-06-09 16:46:00 Emergency Jeanne Charlie [facility] 1.2.840.114 350.1.13.10 4.2.7.2.686 [id number] [facility] 2023-06-07 08:51:00 2023-06-07 15:01:00 Outpatient R JAMES PEREZ [facility] [employer]TER TYPE ONE [id number] [facility] 2023-06-07 11:14:00 2023-06-07 13:33:00 [place] [facility] 1.2.840.114 350.1.13.10 4.2.7.2.686 [id number] [facility] 2023-06-03 11:00:00 2023-06-03 11:00:00 Outpatient NEO HERRERA [facility] [id number] [facility] 2023-06-02 00:00:00 2023-06-02 00:00:00 [facility] [place] 1.2.840.114 350.1.13.10 4.2.7.2.686 [id number] [facility] 2023-05-27 00:00:00 2023-05-27 00:00:00 Outpatient R NEO MADRID [facility] [id number] [facility] 2023-05-25 00:00:00 2023-05-25 00:00:00 Telephone Jorge Alberto [facility] 1.2.840.114 350.1.13.10 4.2.7.2.686 [id number] [facility] 2023-05-24 00:00:00 2023-05-24 00:00:00 Prep For Surgery James Perez [facility] 1.2.840.114 350.1.13.10 4.2.7.2.686 [id number] [facility] 2023-05-22 00:00:00 2023-05-22 00:00:00 Patient Secure Msg [place] [facility] 1.2.840.114 350.1.13.10 4.2.7.2.686 [id number] [facility] 2023-05-21 14:45:00 2023-05-21 15:00:00 Flying Instructor [facility] Jorge Alberto [facility] 1.2840.114 350.1.13.10 4.2.7.2.686 [id number] [facility] 2023-05-21 13:40:00 2023-05-21 14:40:31 Outpatient R NEO MADRID [facility] [id number] [facility] 2023-05-21 13:40:00 2023-05-21 14:40:31 [place] [facility] 1.2.840.114 350.1.13.10 4.2.7.2.686 [id number] [facility] 2022-11-03 00:00:00 2022-11-03 00:00:00 OFFICE VISIT NEW PT LEVEL 3 STLMLC STLMLC [id number] [facility] Results Test Description Test Time Test Comments Results Result Co mments Source [facility] [id number] 16:56:00* Test Item Value Reference Range Interpretation Comme nts POCT PREG (test code = 1605) Negative On board controls acceptable with C Line (test code = 3574) Yes POCT PREG LOT # (test code = 3575) POCT PREG TEST DATE ( test code = 3576) [facility] [id number] 16:56:00* Test Item Value Reference Range Interpretation Comme [facility] POCT PREG (test code = 1605) Negative On board controls acceptable with C Line (test code = 3574) Yes POCT PREG LOT # (test code = 3575) POCT PREG TEST DATE ( test code = 3576) [facility] / [id number] 20:37:58* Test Item Value Reference Range Interpretation Comme [facility] PROTIME PATIENT (test code = 5964-2) 10.8 10.1-12.6 INR (test code = 6301-6) 0.9 Normal INR <1.1; Warfarin Therapeutic range 2.0 to 3.0 or 2.5 to 3.5, depending upon the indications. Lab Interpretation (test code = 64888-3) Normal [facility] THRMPLAS [id number] 20:37:58* Test Item Value Reference Range Interpretation Comme [facility] APTT Patient (test code = 3173-2) 32 26-36 EDILMA (test code = EDILMA) The [facility] patient population mean normal value for aPTT is 30 seconds. Lab Interpretation (test code = 83046-0) Normal [facility] PAN[facility] (NA, K, CL, CO2, GLUCOSE, BUN, CREATININE, CA)2023-06-09 20:01:51* Test Item Value Reference Range Interpretation Comme [facility] NA (test code = 7004189288) 139 mmol/L 135-145 K (test code = 6709941434) 4.1 mmol/L 3.5-5.0 CL (test code = 2985986061) 112 mmol/L 98-108 H CO2 TOTAL (test code = 6938511763) 19 mmol/L 23-31 L AGAP (test code = 6591842024) 8 2-16 BUN (test code = 3018592943) 15 mg/dL 7-23 GLUCOSE (test code = 5117240348) 89 mg/dL 70-110 CREATININE (test code = 2160-0) 0.51 mg/dL 0.50-1.04 CALCIUM (test code = 4078924236) 8.7 mg/dL 8.6-10.6 eGFR (test code = 67807-2) 138.1 mL/min/1.73m2 CKD-EPI eGFR (2020). Assuming creatinine has been stable day-to-day for at least three months, the eGFR indicates Category G1 (>= 90 mL/min/1.73 m2) Lab Interpretation (test code = 26832-8) Abnormal [facility] WITH [id number] 19:57:50* Test Item Value Reference Range Interpretation [...] 34.5 g/dL 31.6-35.1 RDW-SD (test code = 42259-6) 40.2 fL 39.0-49.9 RDW-CV (test code = 788-0) 12.0 % 12.0-15.5 PLT (test code = 777-3) 257 166-358 MPV (test code = 23901-5) 11.6 fL 9.5-12.9 NRBC/100 WBC (test code = 1668981164) 0.0 0.0-10.0 NRBC x10^3 (test code = 2954847204) See_Comment [Automated messa ge] The system which generated this result transmitted reference range: 10*3/?L. The reference range was not used to interpret this result as normal/abnormal. GRAN MAT (NEUT) % (test code = 770-8) 67.8 % IMM GRAN % (test code = 1283934325) 0.30 % LYMPH % (test code = 736-9) 21.7 % MONO % (test code = 5905-5) 7.2 % EOS % (test code = 713-8) 2.2 % BASO % (test code = 706-2) 0.8 % GRAN MAT x10^3(ANC) (test code = 4473956656) 7.08 10*3/uL 1.88-7.09 IMM GRAN x10^3 (test code = 0031291459) 0.03 10*3/uL 0.00-0.06 LYMPH x10^3 (test code = 731-0) 2.26 10*3/uL 1.32-3.29 MONO x10^3 (test code = 742-7) 0.75 10*3/uL 0.33-0.92 EOS x10^3 (test code = 711-2) 0.23 10*3/uL 0.03-0.39 BASO x10^3 (test code = 704-7) 0.08 10*3/uL 0.01-0.07 H Lab Interpretation (test code = 67972-5) Abnormal [facility] [id number] 14:31:00* Test Item Value Reference Range Interpretation Comme nts POCT PREG (test code = 1605) Negative On board controls acceptable with C Line (test code = 3574) Yes POCT PREG LOT # (test code = 3575) POCT PREG TEST DATE ( test code = 3576) [facility] [id number] 19:55:00* Test Item Value Reference Range Interpretation Comme nts POCT PREG (test code = 1605) Negative On board controls acceptable with C Line (test code = 3574) Yes POCT PREG LOT # (test code = 3575) POCT PREG TEST DATE ( test code = 3576) [facility] [id number] 19:55:00* Test Item Value Reference Range Interpretation Comme nts POCT PREG (test code = 1605) Negative On board controls acceptable with C Line (test code = 3574) Yes POCT PREG LOT # (test code = 3575) POCT PREG TEST DATE ( test code = 3576) [facility] Notes Date/Time Note Provider Source 2023-06-11 13:51:40 [id number]:51:40F ormatting of this note might be different from the original.Spoke with pt who verified name and .Pt [...] have any further questions at this time. 99044-6Imbyxlbty encounter YtypWV3429-32-37F32:05:32Telephone encounter NoteTXT1.2.840.065792.1.13.104.2.7. 2.962286|[id number] for patient usnv23004-9WemlLLXGUREIVRXEjzvfqwom C-CDA narrative [id number] Boggs RNUTMBUT - [address] Jo[id number] 3GAOMFDCGTDTGEVFIPFYTGI8658-61-74I8 4:05:321.2.840.695482.1.72.3.15|1.2 .840.119113.1.13.104.2.7.2.727879_2 [id number] Kelly Boggs RN [facility] 2023-06-11 13:03:38 8301-56-98M45:03:38F ormatting of this note might be different from the original.Adina Saavedra is a 17 year old female patient calling since procedure has had red eyes from busted blood vessels, wanting to know if she can use eye drops and if so which ones. Please call [phone]/pharmacy #[id number] - [place], [place] - [address] AT [address] [address]Bkdlt: [phone] Dxozlmvwtblzkb signed by Kerrie Clay at 06/11/2023 1:05 PM TLG51387-7Vlwxjgkoq encounter LbumPF2800-42-04V76:05:10Telephone encounter NoteTXT1.2.840.399651.1.13.104.2.7. 2.409776|[id number] for patient inar32895-1TijiPXHXPVNJKVBWkoxhvwrh C-CDA narrative [id number] [address] Ie[id number] 0HKXGXUFGFWSBJKZPRLNCIF2167-79-50W2 3:05:101.2.840.564860.1.72.3.15|1.2 .840.190285.1.13.104.2.7.2.727879_2 [id number] Kerrie Clay [facility] 2023-06-09 16:36:00 9690-12-97K73:36:00F ormatting of this note might be different from the original.Pt given printed and verbal discharge instructions regarding [...] no apparent distress, accompanied by significant other. 40146-7Urkxkvqsk department KedzZV2508-62-83S45:46:13[facility] NoteTXT1.2.840.861253.1.13.104.2.7. 2.047796|[id number] for patient ulgz77348-8MbgpRRXCCPUNSGALupoagavy C-CDA narrative [id number] C Heredia RN[id number] 0ONSSWSADPMRRGUKNPMESHW4056-80-40B2 6:46:131.2.840.343969.1.72.3.15|1.2 .840.463691.1.13.104.2.7.2.727879_2 [id number] Charlotte Bergman RN [facility] 2023-06-09 13:58:19 1998-44-77S40:58:19F ormatting of this note might be different from the original.Pt to ED CO rash s/p hysteroscopy and polypectomy. Pt presents with petechiae to face and eyes. Reports elevated blood pressure after surgery. Also [place] generalized body aches. 61565-5Yedchnfsr department Triage bxfdQX3126-85-21M04:06:45[facility] Triage noteTXT1.2.840.595522.1.13.104.2.7. 2.599782|[id number] for patient xhus90250-0Vuicvebiz department NoteLNNARRATIVEFormatted C-CDA narrative [id number] R Goodrich RNUT[id number] 4ZQNXHTLSXYXRHMTEMFECGU9978-56-07V1 4:06:451.2.840.019033.1.72.3.15|1.2 .840.666969.1.13.104.2.7.2.727879_2 [id number] Alta Mcnally RN [facility] 2023-06-03 12:31:38 1120-09-93Q41:31:38F ormatting of this note might be different from the original.Spoke with OR posting and they do have availability Wednesday06/07/2023 at 1300.Per provider okay to change.Case moved up to 06/06.Pt notified via [employer]. 65123-8Vybabxbwt encounter BmbdRF2424-90-13C15:33:44Telephone encounter NoteTXT1.2.840.021717.1.13.104.2.7. 2.218081|[id number] for patient wvnr33814-8RcznDWFPGRELQITWrregdtnd C-CDA narrative text[id number] 6NUAEEFZFGMZJANZTOLNSUM5981-04-57Z7 2:33:441.2.840.838652.1.72.3.15|1.2 .840.705267.1.13.104.2.7.2.727879_2 [id number] [facility] 2023-06-02 16:44:34 3633-59-95V99:44:34F ormatting of this note might be different from the original.Attempted to call OR posting, no answer at this time, will attempt to call tomorrow morning to check availability. 28934-7Oksupxohm encounter VjtvXT7644-31-14Z23:45:17Telephone encounter NoteTXT1.2.840.466754.1.13.104.2.7. 2.649830|[id number] for patient qjhn67988-7RjskVORFTXBJKOSCcvkhuvzu C-CDA narrative [id number] 8PYMLKJDFTSBWOLYGOPHSFD7161-65-82H9 6:45:171.2.840.057712.1.72.3.15|1.2 .840.827439.1.13.104.2.7.2.727879_2 [id number] [facility] 2023-06-02 15:29:56 9238-46-33X68:29:56F ormatting of this note might be different from the original.Spoke with pt, pt identified by name and .Pt states she went to [facility] and was recommended to come in for an ER follow up due to polyp infection, pt was prescribed Doxycycline for the infection and just want to make sure everything looks good to move forward with surgery. 14211-3Glijqeokl encounter TeevRN2172-41-52H32:39:19Telephone encounter NoteTXT1.2.840.754672.1.13.104.2.7. 2.788309|[id number] for patient lyrr81420-0PywgTSTHUIBEVVLXbsofwnqi C-CDA narrative [id number] 0MOIQUMKKGTGWJXRHFFDGQK2184-05-58E5 5:39:191.2.840.916172.1.72.3.15|1.2 .840.247516.1.13.104.2.7.2.727879_2 [id number] [facility] 2023-06-02 14:41:11 3542-66-44T44:41:11F ormatting of this note might be different from the original.Attempted to call pt on regarding her apt for tomorrow 06/13/2023, no answer at this time, left vm for pt to call back. 53091-7Yqahqkztm encounter ZzkuMW7121-69-96E73:41:30Telephone encounter NoteTXT1.2.840.684007.1.13.104.2.7. 2.929832|[id number] for patient vlcn97457-7AhoeQVVGJPPMKKMOcgqjpfmo C-[place] ScientificA narrative [id number] 7MMALGMZWJHFZWMJJFZXWNH6343-70-72H7 4:41:301.2.840.506802.1.72.3.15|1.2 .840.009708.1.13.104.2.7.2.727879_2 [id number] [facility] 2023-05-25 13:13:18 6660-97-73Z29:13:18F ormatting of this note might be different [place]. [address]-8Gkqjrrrjr encounter TetjXF0049-49-23B80:13:28Telephone encounter NoteTXT1.2.840.522211.1.13.104.2.7. 2.579663|[id number] for patient jqld61091-7GurqRJOTUCXRVQMMxpacqdaf C-CDA narrative [id number] 2AVXGEGJOSZVIAVFTMPEMXX7601-00-24O8 3:13:281.2.840.546344.1.72.3.15|1.2 .840.170579.1.13.104.2.7.2.727879_2 [id number] [facility] 2023-05-25 13:07:48 7130-91-60Y81:07:48F ormatting of this note might be different [...] she will go to ER for evaluation. 21920-5Nrlnkaidy encounter KrtgUW9565-21-09A51:13:02Telephone encounter NoteTXT1.2.840.621431.1.13.104.2.7. 2.348637|[id number] for patient zgmc95380-1EwtyKGQFWBGARXXSwpfmqdjl C-CDA narrative text[address] Db[id number] 5MRRDVGDCYZTNCVCDDSSCZZ8729-37-82U4 3:13:021.2.840.671537.1.72.3.15|1.2 .840.455443.1.13.104.2.7.2.727879_2 [id number] [facility] 2023-05-25 12:31:21 7910-59-02O01:31:21F ormatting of this note might be different from the original.Pt returning missed call from nurse. Please call and assist. 65279-4Xrejscaiy encounter VayiLH4688-12-75N77:32:18Telephone encounter NoteTXT1.2.840.194826.1.13.104.2.7. 2.882322|[id number] for patient kqcz61956-4ZargYIHWXLLPYLPNkyiiodry C-CDA narrative textUT[address] Oo[id number] 5BJOGZECUADIIJDOXPODXJF8298-17-90N2 2:32:181.2.840.745398.1.72.3.15|1.2 .840.857928.1.13.104.2.7.2.727879_2 [id number] [facility] 2023-05-21 14:45:00 9918-97-07Z00:45:00F ormatting of this note is different from the original.Images from the original note were not included.Venipuncture collection performed by clean technique on the right anticubitus. Total of 1 attempts were made. Slight pressure and a bandage/dressing were applied to the site(s). The patient experienced no complications. The following specimens were processed according to instructions and [facility] to [facility] laboratoriesLT BLUELt GreenSST 2REDLAV 2PPTDK GREEN (L)DK GREEN (S)///Fibrosure set BLUE,SST & LAVGRAYDK BLUE (K2)DK BLUE (S)ACDRSTBLOOD CULTURE SETBLOOD CULTURE (AFB AND FUNGUS )VERIFYNOWMonogramTYPENEX (LAV TOP) ARM BAND ON PATIENTZ plasma preservative tube (call lab for tube)ARUPVasoactive Intestinal Peptide (call lab for tube)ARUPFEDEX ( NIPT)URINEURINE CULTUREAPTIMA URINESTOOL 99165-9Ilvrk PlrxOF4617-37-26W31:54:19Nurse NoteTXT1.2.840.635439.1.13.104.2.7. 2.870071|[id number] for patient xugj24101-4Bstsm NoteLNNARRATIVEFormatted C-CDA narrative text[address] Xw[id number] 3MRBHWDWAQSATJCGDNVVQGG1850-34-14N1 4:54:191.2.840.316518.1.72.3.15|1.2 .840.323365.1.13.104.2.7.2.727879_2 [id number] [facility]
[2023-08-14 07:48] LABS: SARS-CoV-2 Antigen CONTROL BLUE LINE VIS/BG OK; SARS-CoV-2 Antigen Rapid Res Negative (Negative)
--- NOTE | 2023-08-14 08:19 | EDPHYS ---
Physician Documentation [facility] Name: Rosa Saavedra Age: 17 yrs Sex: Female : 2005 Arrival Date: 08/14/2023 Time: 07:13 Bed 5 Private MD: ED Physician Giovanni Stewart HPI: 08/13 08:13 This 17 yrs old Female presents to ER via Ambulatory with complaints of Sore angel Throat. 08:13 The patient presents with sore throat. 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 - Infectious Disease History:: Denies. - Social history:: Smoking status: Reported history of juuling and/or vaping. ROS: 08:13 Constitutional: Negative for fever, chills, and weight loss, Eyes: Negative for injury, angel pain, redness, and discharge, Neck: Negative for injury, pain, and swelling, Cardiovascular: Negative for chest pain, palpitations, and edema, Respiratory: Negative for shortness of breath, cough, wheezing, and pleuritic chest pain, Abdomen/GI: Negative for abdominal pain, nausea, vomiting, diarrhea, and constipation, Back: Negative for injury and pain, : Negative for injury, bleeding, discharge, and swelling, MS/Extremity: Negative for injury and deformity, Skin: Negative for injury, rash, and discoloration, Neuro: Negative for headache, weakness, numbness, tingling, and seizure, Psych: Negative for depression, anxiety, suicide ideation, homicidal ideation, and hallucinations, Allergy/Immunology: Negative for hives, rash, and allergies, Endocrine: Negative for neck swelling, polydipsia, polyuria, polyphagia, and marked weight changes, Hematologic/Lymphatic: Negative for swollen nodes, abnormal bleeding, and unusual bruising, 08:13 ENT: Positive for rhinorrhea, sinus congestion, sore throat, Exam: 08:13 Constitutional: This is a well developed, well nourished patient who is awake, alert, angel and in no acute distress. Head/Face: Normocephalic, atraumatic. Eyes: Pupils equal round and reactive to light, extra-ocular motions intact. Lids and lashes normal. Conjunctiva and sclera are non-icteric and not injected. Cornea within normal limits. Periorbital areas with no swelling, redness, or edema. Neck: Trachea midline, no thyromegaly or masses palpated, and no cervical lymphadenopathy. Supple, full range of motion without nuchal rigidity, or vertebral point tenderness. No Meningismus. Chest/axilla: Normal chest wall appearance and motion. Nontender with no deformity. No lesions are appreciated. Cardiovascular: Regular rate and rhythm with a normal S1 and S2. No gallops, murmurs, or rubs. Normal PMI, no JVD. No pulse deficits. Respiratory: Lungs have equal breath sounds bilaterally, clear to auscultation and percussion. No rales, rhonchi or wheezes noted. No increased work of breathing, no retractions or nasal flaring. Abdomen/GI: Soft, non-tender, with normal bowel sounds. No distension or tympany. No guarding or rebound. No evidence of tenderness throughout. Back: No spinal tenderness. No costovertebral tenderness. Full range of motion. Skin: Warm, dry with normal turgor. Normal color with no rashes, no lesions, and no evidence of cellulitis. MS/ Extremity: Pulses equal, no cyanosis. Neurovascular intact. Full, normal range of motion. Neuro: Awake and alert, GCS 15, oriented to person, place, time, and situation. Cranial nerves II-XII grossly intact. Motor strength 5/5 in all extremities. Sensory grossly intact. Cerebellar exam normal. Normal gait. Psych: Awake, alert, with orientation to person, place and time. Behavior, mood, and affect are within normal limits. 08:13 ENT: Posterior pharynx: Tonsils: bilaterally enlarged, Uvula: midline, swelling, that is mild, erythema, that is moderate, exudate, is not appreciated, peritonsillar mass, is not appreciated, Vital Signs: 07:23 BP 170 / 102; Pulse 63; Resp 17; Temp 98.6(O); Pulse Ox 97% on R/A; Weight 129.73 kg; ll1 Height 5 ft. 11 in. ; Pain 9/10; 08:45 BP 159 / 87; Pulse 68; Resp 18; Temp 98; Pulse Ox 98% on R/A; ll1 07:23 Body Mass Index 39.89 (129.73 kg, 180.34 cm) - Percentile 98.3 % ll1 07:23 Pain Scale: Adult ll1 MDM: 07:17 Patient medically screened. [facility] 08:15 Differential diagnosis: group A strep tonsillitis, influenza, laryngitis, peritonsillar angel abscess chlamydia pharyngitis, pharyngitis, tonsillitis, upper respiratory infection, uvulitis. Data reviewed: vital signs, nurses notes, lab test result(s), Flu: negative. Consideration of Admission/Observation Escalation of care including admission/observation considered. I considered the following discharge prescriptions or medication management in the emergency department Medications were administered in the Emergency Department. See MAR. Test considered but Not performed: Labs: no cbc ,no comp. Care significantly affected by the following chronic conditions: Obesity. Counseling: I had a detailed discussion with the patient and/or guardian regarding the historical points, exam findings, and any diagnostic results supporting the discharge/admit diagnosis, lab results, the need for outpatient follow up, for definitive care, an ENT specialist, a family practitioner. 08/13 07:18 Order name: Strep [facility] 08/13 07:18 Order name: Flu [facility] 08/13 07:18 Order name: SARS RAPID; Complete Time: 08:11 [facility] 08/13 07:51 Order name: Throat Culture EDMS Administered Medications: 07:28 Not Given (Physician Discretion; possible allergyy): cwcwvglrsygb988 mg PO once ll1 08:34 Drug: Cefdinir PO 300 mg PO once Route: PO; ll1 08:44 Follow up: Response: No adverse reaction ll1 08:34 Drug: Dexamethasone IM 10 mg IM once {Note: given PO.} Route: IM; Site: Other; ll1 08:44 Follow up: Response: No adverse reaction ll1 Disposition Summary: 08/14/23 08:18 Discharge Ordered Notes: Location: Home angel Problem: new angel Symptoms: have improved angel Condition: Stable angel Diagnosis - Acute pharyngitis, unspecified angel - Acute tonsillitis, unspecified angel Followup: angel - With: Private Physician - When: 2 - 3 days - Reason: Recheck today's complaints, Continuance of care, Re-evaluation by your physician Followup: angel - With: Lisa Harden MD - When: 2 - 3 days - Reason: Recheck today's complaints, Re-evaluation by your physician Discharge Instructions: - Discharge Summary Sheet angel - Pharyngitis angel - Sore Throat angel - Tonsillitis angel - Tonsillitis, Jfps-at-Crlf angel - Pharyngitis, Ixct-gq-Ycya [facility] Forms: - Medication Reconciliation Form angel - Antibiotic Education angel - Prescription Opioid Use angel - Patient Portal Instructions angel - Leadership Thank You Letter agnel - Work release form ll1 Prescriptions: - cefdinir 300 mg Oral capsule - take 1 capsule ORAL route every 12 hours; 20 capsule; Refills: 0, Product angel Selection Permitted - Priscilla-D 12 Hour 60-120 mg Oral Tablet Sustained Release 12 hr - take 1 tablet ORAL route every 12 hours As needed; 20 tablet; Refills: 0, angel Product Selection Permitted Signatures: Dispatcher [employer] EDMS Giovanni Stewart MD MD cha Lewis, Lynsay RN RN ll1 Corrections: (The following items were deleted from the chart) 07:18 07:18 Influenza Screen (A \T\ B)+BA.LAB.BRZ ordered. EDMS EDMS 07:18 07:18 Group A Streptococcus Rapid Sc+BA.LAB.BRZ ordered. EDMS EDMS 07:18 07:18 SARS-COV-2 Antigen Rapid+I.LAB.BRZ ordered. EDMS EDMS
--- NOTE | 2023-08-14 08:19 | ER ---
Nurse's Notes [facility] Name: Rosa Saavedra Age: 17 yrs Sex: Female : 2005 Arrival Date: 08/14/2023 Time: 07:13 Bed 5 Private MD: Diagnosis: Acute pharyngitis, unspecified;Acute tonsillitis, unspecified Presentation: 08/13 07:23 Chief complaint: Patient states: Sore throat for 6 days. No known fever. No N/V/D. ll1 Coronavirus screen: Client denies travel out of the [place] in the last 14 days. cough unrelated to allergies, fatigue, sore throat, Client presents with at least one sign or symptom that may indicate coronavirus-19. Standard/surgical mask placed on the client. Ebola Screen: Patient denies travel to an Ebola-affected area in the 21 days before illness onset. Initial Sepsis Screen: Does the patient meet any 2 criteria? No. Patient's initial sepsis screen is negative. Does the patient have a suspected source of infection? No. Patient's initial sepsis screen is negative. Risk Assessment: Do you want to hurt yourself or someone else? Patient reports no desire to harm self or others. Onset of symptoms was August 07, 2023. 07:23 Method Of Arrival: Ambulatory ll1 07:23 Acuity: SUSANNAH 4 ll1 Triage Assessment: 07:25 General: Appears uncomfortable, Behavior is calm, cooperative, appropriate for age. ll1 Pain: Complains of pain in throat Pain currently is 9 out of 10 on a pain scale. Quality of pain is described as aching, Pain began 6 days ago Aggravated by eating, drinking. EENT: Reports pain when swallowing. Respiratory: Reports cough that is. 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 - Infectious Disease History:: Denies. - Social history:: Smoking status: Reported history of juuling and/or vaping. Screenin:35 [facility] ED Fall Risk Assessment (Adult) History of falling in the last 3 months, ll1 including since admission No falls in past 3 months (0 pts) Confusion or Disorientation No (0 pts) Intoxicated or Sedated No (0 pts) Impaired Gait No (0 pts) Mobility Assist Device Used No (0 pt) Altered Elimination No (0 pt) Score/Fall Risk Level 0 - 2 = Low Risk Maintained a safe environment, Hourly rounding (assess needs \T\ fall precautionary measures) done. Abuse screen: Denies threats or abuse. Nutritional screening: No deficits noted. Tuberculosis screening: No symptoms or risk factors identified. Assessment: 07:25 Reassessment: No changes from previously documented assessment. Patient and/or family ll1 updated on plan of care and expected duration. Pain level reassessed. 07:36 Respiratory: Airway is patent Respiratory effort is even, unlabored, Breath sounds are ll1 clear bilaterally. EENT: Throat is reddened has enlarged tonsils on right on left Reports pain when swallowing. Vital Signs: 07:23 BP 170 / 102; Pulse 63; Resp 17; Temp 98.6(O); Pulse Ox 97% on R/A; Weight 129.73 kg; ll1 Height 5 ft. 11 in. ; Pain 9/10; 08:45 BP 159 / 87; Pulse 68; Resp 18; Temp 98; Pulse Ox 98% on R/A; ll1 07:23 Body Mass Index 39.89 (129.73 kg, 180.34 cm) - Percentile 98.3 % ll1 07:23 Pain Scale: Adult ll1 ED Course: 07:16 Patient arrived in ED. ra3 07:17 Giovanni Stewart MD is Attending Physician. angel 07:17 Arm band placed on Patient placed in an exam room, on a stretcher. ll1 07:22 Yanet Krishnan, SAYRA is Primary Nurse. ll1 07:23 COVID swab sent to lab. Flu and/or RSV swab sent to lab. Strep swab sent to lab. ll1 07:25 Triage completed. ll1 07:25 Warm blanket given. Pillow given. ll1 07:25 Provided Education on: ER procedures and process. ll1 07:28 Notified ED physician of other allergic to PCN, amoxicillin, and clarithromycin. ll1 Azithromycin not given. 07:35 Patient has correct armband on for positive identification. ll1 08:17 Lisa Harden MD is Referral Physician. [facility] 08:44 No provider procedures requiring assistance completed. Patient did not have IV access ll1 during this emergency room visit. Administered Medications: 07:28 Not Given (Physician Discretion; possible allergyy): abptxgjgpdby812 mg PO once ll1 08:34 Drug: Cefdinir PO 300 mg PO once Route: PO; 1 08:44 Follow up: Response: No adverse reaction ll1 08:34 Drug: Dexamethasone IM 10 mg IM once {Note: given PO.} Route: IM; Site: Other; 1 08:44 Follow up: Response: No adverse reaction ll1 Medication: 07:36 VIS not applicable for this client. ll1 Outcome: 08:18 Discharge ordered by . [facility] 08:44 Discharged to home ambulatory, 1 08:44 Condition: good 08:44 Discharge instructions given to patient, Instructed on discharge instructions, follow up and referral plans. medication usage, Demonstrated understanding of instructions, follow-up care, medications, Prescriptions given X 2, 08:45 Patient left the ED. ll1 Signatures: Giovanni Stewart MD MD cha Lewis, Lynsay, RN RN ll1 Emily Merino ra3 Corrections: (The following items were deleted from the chart) 07:35 07:28 Notified ED physician of other allergic to PCN, amoxicillin, and clarithromycin. ll1 ll1
[2023-08-14] MEDS ORDERED: CEFDINIR 300 MG CAP PO ONE (08:29)
[2023-08-14] MEDS ORDERED: dexAMETHasone 10 MG/ML VIAL ONE (08:29)
[2023-08-14 08:59] VITALS: BP 159/87; TEMP 98; O2SAT 98
== END 2023-08-14 08:45 | disposition home or self-care (01) ==
LOC: ER 07:13
DX: J03.90 Acute tonsillitis, unspecified (principal); Z11.52 Encounter for screening for COVID-19
CPT/HCPCS: 87070; 36415; 87081; 87804 ×2; 96372; 99284; 87811; J1100

== ENCOUNTER 2024-01-25 03:51 | Emergency (ER) | payer BC ==
--- OUTSIDE RECORDS SUMMARY | 2024-01-25 03:54 | XMS REPORT | Continuity of Care Document ---
Author Name Unknown Address [address] [place] [address] [facility] Address [address] [place] [address] Care Team Providers Care Trust Manager Name Role Phone PCP, PATIENT DOES NOT HAVE A Primary Care Physic reyes Unavailable JAMES PEREZ Attending Clinician Unavailable La Mueller Attending Clinician Unavailable NEO MADRID Attending Clinician UnavailNeo Troy Attending Clinician James Perez MD Attending Clinician CHARLIE ANGEL Attending Clinician Unavailable Charlie Laughlin Attending Clinician [phone] [facility] Attending Clinician Unavailable JAMES PEREZ Admitting Clinician Unavailable Payers Payer Name Policy Type Policy Number Effective Date Expirati on Date Source [employer] FED SELECT [id number] 2019 00:00:00 Problems Condition Name Condition Details Condition Category Status Onset Date Resolution Date Last Treatment Date Treating Clinician Comments Source Obesity (BMI 30-39.9) Obesity (BMI 30-39.9) Disease Active 06-06 00:00: 00 [facility] 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 - 00:00: 00 [facility] Pelvic pain Pelvic pain Disease Active 05-23 00:00: 00 [facility] [id number] Vapes nicotine containing substance Problem [facility] Obese class II Body mass index (BMI) of 35 Problem [facility] [id number] Mild intermitte nt asthma without complicati on Problem [facility] [id number] Chronic tonsilliti s Problem [facility] Tobacco user Vaping nicotine dependence , tobacco product Problem [facility] [id number] Irregular periods Problem [facility] Allergies, Adverse Reactions, Alerts Allergy Name Allergy Type Status Severity Reaction(s) Onset Date Inactive Date Treating Clinician Comments Source Amoxicil bita Propensi ty to adverse reaction s Active Unknown - See comments 05-20 00:00: 00 [facility] Clarithr omycin Propensi ty to adverse reaction s Active Palpitations - 00:00: 00 [facility] CLARITHR OMYCIN DRUG INGREDI Active Palpitations 05-20 00:00: 00 [facility] AMOXICIL BITA DRUG INGREDI Active Unknown-Cmnt 05-20 00:00: 00 [facility] clarithr omycin clarithr omycin Active , vomiting, high blood pressure [facility] NO KNOWN ALLERGIE S Drug Class Active [facility] Social History Social Habit Start Date Stop Date Quantity Comments Source History of tobacco use Cigarette Smoker [facility] of Social function 2023-06-07 00:00:00 2023-06-07 00:00:00 [facility] Tobacco use and exposure 2023-06-04 00:00:00 2023-06-04 00:00:00 Smokeless tobacco non-user [facility] Tobacco Comment 2023-06-04 00:00:00 2023-06-04 00:00:00 Vapes [facility] Sex assigned at 2005 00:00:00 2005 00:00:00 [facility] Smoking Status Start Date Stop Date Source Tobacco smoking consumption unknown [facility] Smokes tobacco daily 2023-06-04 00:00:00 [facility] Light tobacco smoker 2022-11-03 00:00:00 [facility] Medications Ordered Medication Name Filled Medication Name Start Date Stop Date Current Medication? Ordering Clinician Indication Dosage Frequency Signature (SIG) Comments Components Source levonorgest reL (MIRENA) IUD 1 Device 07-22 23:00: 00 07-22 22:05 :00 No [id number] 1{devic e} 1 Device, Intrauteri ne, ONCE, 1 dose, On Wed07/23/23 at 1800, Routine [facility] nystatin-tr iamcinolone cream 07-22 00:00: 00 07-30 04:59 :00 No [id number] Apply to area(s) 2 (two) times daily for 7 days. [facility] phenoL (CHLORASEPT IC THROAT SPRAY) 1.4 % spray 06-08 00:00: 00 Yes [id number] 1{spray } Take 1 [place] by mouth as needed for Sore throat. [facility] albuterol (PROVENTIL) 2.5 mg /3 mL (0.083 %) nebulizer solution 2.5 mg 06-06 19:30: 00 06-06 18:51 :00 No 2.5mg 2.5 mg, Inhalation , ONCE, 1 dose, On Wed06/07/23 at 1430, Routine [facility] acetaminoph en (TYLENOL) tablet 650 mg 06-06 18:49: 36 06-06 22:08 :22 No 650mg 650 mg, Oral, PRN, 1 dose, Starting on Wed06/07/23 at 1349, Until Wed06/07/23 at 1708, Routine, Pain (scale 1-3), DSU Recovery [facility] ibuprofen (IBU) tablet 800 mg 06-06 18:49: 36 06-06 22:08 :22 No 800mg 800 mg, Oral, PRN, 1 dose, Starting on Wed06/07/23 at 1349, Until Wed06/07/23 at 1708, Routine, Pain (scale 4-6), DSU Recovery [facility] HYDROcodone -acetaminop hen (NORCO 5) 5-325 mg tablet 1 tablet 06-06 18:45: 00 06-06 18:57 :00 No 1{tbl} 1 tablet, Oral, ONCE, 1 dose, On Wed06/07/23 at 1345, Routine [facility] HYDROmorphO ne (DILAUDID) injection 0.2 mg 06-06 18:36: 59 06-06 22:08 :22 No .2mg 0.2 mg, Slow IV Push, Q5MIN PRN, 10 doses, Starting on Wed06/07/23 at 1336, Until Wed06/07/23 at 1708, Routine, Pain (scale 7-10)
U se approved by (Faculty): PACU USE -ANESTHESI A SERVICE-HY DROMORPHON E INJECTIONS [facility] FENTanyl PF (SUBLIMAZE (PF)) injection 25 mcg 06-06 18:36: 59 06-06 22:08 :22 No 25ug 25 mcg, Slow IV Push, Q5MIN PRN, 4 doses, Starting on Wed06/07/23 at 1336, Until Wed06/07/23 at 1708, Routine, Pain (scale 4-6) [facility] ondansetron (ZOFRAN (PF)) injection 4 mg 06-06 18:36: 59 06-06 22:08 :22 No 4mg 4 mg, Slow IV Push, PRN, 1 dose, Starting on Wed06/07/23 at 1336, Until Wed06/07/23 at 1708, Routine, Nausea and Vomiting (N/V) [facility] ferric subsulfate (MONSEL'S) solution 06-06 18:28: 00 06-06 18:49 :28 No PRN, Starting on Wed06/07/23 at 1328, Until Wed06/07/23 at 1349, Routine, Intra-op [facility] ibuprofen 600 mg tablet 06-06 00:00: 00 Yes [id number] 600mg Take 1 tablet by mouth every 6 (six) hours as needed for Pain (scale 4-6) or Pain (scale 1-3). [facility] acetaminoph en (TYLENOL) 325 mg tablet 06-06 00:00: 00 06-07 04:59 :00 No [id number] 650mg Take 2 tablets by mouth every 6 (six) hours as needed for Alternate with ibuprofen for pain scale 4-6 or Alternate with ibuprofen for pain scale 1-3. [facility] valACYclovi r (VALTREX) 500 mg tablet 05-20 00:00: 00 Yes [id number] 500mg Take 1 tablet by mouth in the morning and 1 tablet in the evening. For 3 days with onset of lesion [facility] albuterol 2.5 mg/0.5 mL nebulizer solution 03-17 00:00: 00 Yes INHALE 1 VIAL IN NEBULIZER EVERY 4 HOURS NEEDED CONGESTION [facility] Flovent HFA 110 MCG/ACT Flovent HFA [...] Comments Source Pediarix (dtap/hep B/ipv) Unknown Completed [facility] Pneumococcal 7 Conjugate, PCV7 (Prevnar7) Unknown Completed [facility] Hep B, Adol or Pedi Dosage Unknown Completed [facility] HIB 4 Dose Schedule Unknown Completed [facility] Pediarix (dtap/hep B/ipv) Unknown Completed [facility] Pneumococcal 7 Conjugate, PCV7 (Prevnar7) Unknown Completed [facility] Hep B, Adol or Pedi Dosage Unknown Completed [facility] HIB 4 Dose Schedule Unknown Completed [facility] Vital Signs Vital Name Observation Time Observation Value Comments S ource Systolic blood pressure 2023-07-23 16:12:00 127 mm[Hg] [facility] Diastolic blood pressure 2023-07-23 16:12:00 89 mm[Hg] [facility] Heart rate 2023-07-23 16:12:00 76 /min [facility] Body weight 2023-07-23 16:12:[address] [facility] Systolic blood pressure 2023-06-29 16:23:00 133 mm[Hg] [facility] Diastolic blood pressure 2023-06-29 16:23:00 83 mm[Hg] [facility] Heart rate 2023-06-29 16:23:00 85 /min [facility] Body temperature 2023-06-29 16:23:00 37 Priti [facility] Body weight 2023-06-29 16:23:[address] [facility] Systolic blood pressure 2023-06-09 20:43:00 133 mm[Hg] [facility] Diastolic blood pressure 2023-06-09 20:43:00 92 mm[Hg] [facility] Heart rate 2023-06-09 20:43:00 74 /min [facility] Respiratory rate 2023-06-09 20:43:00 19 /min [facility] Body temperature 2023-06-09 19:04:00 36.83 Priti [facility] Body height 2023-06-09 19:04:00 180.3 cm [facility] Body weight 2023-06-09 19:04:00 129.048 kg [facility] BMI 2023-06-09 19:04:00 39.68 kg/m2 [facility] Oxygen saturation in Arterial blood by Pulse oximetry 2023-06-09 19:04:00 100 /min [facility] Systolic blood pressure 2023-06-07 14:14:00 150 mm[Hg] [facility] Diastolic blood pressure 2023-06-07 14:14:00 90 mm[Hg] [facility] Heart rate 2023-06-07 14:14:00 78 /min [facility] Body temperature 2023-06-07 14:14:00 37.61 Priti [facility] Respiratory rate 2023-06-07 14:14:00 18 /min [facility] Body height 2023-06-07 14:14:[address] [facility] Body weight 2023-06-07 14:14:[address] [facility] BMI 2023-06-07 14:14:00 39.71 kg/m2 [facility] Oxygen saturation in Arterial blood by Pulse oximetry 2023-06-07 14:14:00 99 /min [facility] Systolic blood pressure 2023-05-21 19:42:00 132 mm[Hg] [facility] Diastolic blood pressure 2023-05-21 19:42:00 83 mm[Hg] [facility] Heart rate 2023-05-21 19:42:00 82 /min [facility] Body weight 2023-05-21 19:41:[address] [facility] height 2022-11-03 09:00:00 71.00 [in_i] Com mon [facility] weight 2022-11-03 09:00:00 252.4 [lb_av] Co mmon [facility] temperature 2022-11-03 09:00:00 97.2 [degF] Com mon [facility] bmi 2022-11-03 09:00:00 35.2 kg/m2 Commo n [facility] oximetry 2022-11-03 09:00:00 96 % Comm n [facility] respiratory rate 2022-11-03 09:00:00 16 /min [facility] blood pressure systolic 2022-11-03 09:00:00 120 mm[Hg] [facility] blood pressure diastolic 2022-11-03 09:00:00 68 mm[Hg] [facility] Procedures Procedure Date / Time Performed Performing Clinician Source POCT TEST 2023-07-23 16:56:00 Annabelle Madrid [facility] BASIC METABOLIC PANEL (NA, K, CL, CO2, GLUCOSE, BUN, CREATININE, CA) 2023-06-09 19:32:00 Charlie Angel [facility] CBC WITH DIFF 2023-06-09 19:32:00 [facility] 2023-06-09 19:32:00 Giana Angel [facility] ACTIVATED PARTIAL THRMPLAS ISRA[place] 2023-06-09 19:32:00 Charlie Angel [facility] HYSTEROSCOPY WITH DILATATION AND CURETTAGE 2023-06-07 16:52:00 James Perez [facility] POLYPECTOMY 2023-06-07 16:52:00 [facility] POCT TEST 2023-06-07 14:26:00 Margaret Berumen [facility] CONSENT/REFUSAL FOR DIAGNOSIS AND TREATMENT 2023-06-07 13:52:33 Doctor Unassigned, [place] [facility] ASSIGNMENT OF BENEFITS 2023-06-07 13:52:14 Docto r Unassigned, [place] [facility] POCT TEST 2023-05-21 00:00:00 Annabelle Madrid [facility] Encounters Start Date/Time End Date/Time Encounter Type Admission Type Attending Clinicians Care Facility Care Department Encounter ID Source 2023-05-26 10:30:34 Outpatient R JAMES PEREZ [facility] 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 [id number] [facility] 2022-11-03 08:14:01 Outpatient La Mueller [facility] [id number] [facility] 2023-11-22 15:40:00 2023-11-22 15:40:00 Outpatient NEO HERRERA [facility] [id number] [facility] 2023-11-16 10:40:00 2023-11-16 10:40:00 Outpatient R NEO MADRID [facility] [id number] [facility] 2023-10-07 08:00:00 2023-10-07 08:00:00 Outpatient NEO HERRERA [facility] [id number] [facility] 2023-09-03 10:40:00 2023-09-03 10:40:00 Outpatient NEO HERRERA [facility] [id number] [facility] 2023-07-24 00:00:00 2023-07-27 11:40:09 Patient Secure Msg Neo Madrid [facility] .[id number] 350.1.13.10 4.2.7.2.686 [id number] [facility] 2023-07-23 11:00:00 2023-07-23 12:10:56 Outpatient NEO HERRERA [facility] [id number] [facility] 2023-07-23 11:00:00 2023-07-23 12:10:56 Office Visit Neo Madrid [facility] ..840.114 350.1.13.10 4.2.7.2.686 [id number] [facility] 2023-06-29 11:40:00 2023-06-29 13:11:17 Outpatient JAMES MALDONADO [facility] [id number] [facility] 2023-06-29 11:40:00 2023-06-29 13:11:17 Office Visit Eunice Perezvette [facility] 1.2840.114 350.1.13.10 4.2.7.2.686 [id number] [facility] 2023-06-11 00:00:00 2023-06-11 00:00:00 Telephone CovinaLucianaJames [facility] 1.2840.114 350.1.13.10 4.2.7.2.686 [id number] [facility] 2023-06-09 14:07:00 2023-06-09 16:46:00 Emergency X CHARLIE ANGEL [facility] ERT [id number] [facility] 2023-06-09 14:07:00 2023-06-09 16:46:00 Emergency Raúl Charlie [facility] 1.840.114 350.1.13.10 4.2.7.2.686 [id number] [facility] 2023-06-07 08:51:00 2023-06-07 15:01:00 Outpatient R JAMES 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 [facility] 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 [id number] [facility] 2023-06-07 11:14:00 2023-06-07 13:33:00 Surgery Andreia Pereze [facility] 1.2840.114 350.1.13.10 4.2.7.2.686 [id number] [facility] 2023-06-03 11:00:00 2023-06-03 11:00:00 Outpatient R NEO MADRID [facility] [id number] [facility] 2023-06-02 00:00:00 2023-06-02 00:00:00 Telephone Neo Madrid [facility] 1.2840.114 350.1.13.10 4.2.7.2.686 [id number] [facility] 2023-05-27 00:00:00 2023-05-27 00:00:00 Outpatient R JULIUSANNABELLEA [facility] [id number] [facility] 2023-05-25 00:00:00 2023-05-25 00:00:00 Telephone Neo Madrid [facility] 1.2.840.114 350.1.13.10 4.2.7.2.686 [id number] [facility] 2023-05-24 00:00:00 2023-05-24 00:00:00 Prep For Surgery James Perez [facility] 1.2.840.114 350.1.13.10 4.2.7.2.686 [id number] [facility] 2023-05-22 00:00:00 2023-05-22 00:00:00 Patient Secure Msg Pitman [facility] 1.2.840.114 350.1.13.10 4.2.7.2.686 [id number] [facility] 2023-05-21 14:45:00 2023-05-21 15:00:00 Civil Engineering Manager Visit [facility] 1.2840.114 350.1.13.10 4.2.7.2.686 [id number] [facility] 2023-05-21 13:40:00 2023-05-21 14:40:31 Outpatient R NEO MADRID [facility] [id number] [facility] 2023-05-21 13:40:00 2023-05-21 14:40:31 Office Visit Pitman Neo [facility] 1.2840.114 350.1.13.10 4.2.7.2.686 [id number] [facility] 2022-11-03 00:00:00 2022-11-03 00:00:00 OFFICE VISIT NEW PT LEVEL 3 STLMLC STLMLC [id number] [facility] Results Test Description Test Time Test Comments Results Result Co mments Source [facility] [id number] 16:56:00* Test Item Value Reference Range Interpretation Comme [facility] POCT PREG (test code = 1605) Negative On board controls acceptable with C Line (test code = 3574) Yes POCT PREG LOT # (test code = 3575) POCT PREG TEST DATE ( test code = 3576) [facility] [id number] 16:56:00* Test Item Value Reference Range Interpretation Comme [facility] POCT PREG (test code = 1605) Negative On board controls acceptable with C Line (test code = 3574) Yes POCT PREG LOT # (test code = 3575) POCT PREG TEST DATE ( test code = 3576) [facility] / [id number] 20:37:58* Test Item Value Reference Range Interpretation Comme [facility] PROTIME PATIENT (test code = 5964-2) 10.8 10.1-12.6 INR (test code = 6301-6) 0.9 Normal INR <1.1; Warfarin Therapeutic range 2.0 to 3.0 or 2.5 to 3.5, depending upon the indications. Lab Interpretation (test code = 56377-8) Normal [facility] THRMPLAS [id number] 20:37:58* Test Item Value Reference Range Interpretation Comme [facility] APTT Patient (test code = 3173-2) 32 26-36 EDILMA (test code = EDILMA) The [facility] patient population mean normal value for aPTT is 30 seconds. Lab Interpretation (test code = 49822-4) Normal [facility] METABOLIC PANEL (NA, K, CL, CO2, GLUCOSE, BUN, CREATININE, CA)2023-06-09 20:01:51* Test Item Value Reference Range Interpretation Comme [facility] NA (test code = 2175367833) 139 mmol/L 135-145 K (test code = 0599673732) 4.1 mmol/L 3.5-5.0 CL (test code = 6650817213) 112 mmol/L 98-108 H CO2 TOTAL (test code = 7271348784) 19 mmol/L 23-31 L AGAP (test code = 7373807844) 8 2-16 BUN (test code = 9153969233) 15 mg/dL 7-23 GLUCOSE (test code = 6246778600) 89 mg/dL 70-110 CREATININE (test code = 2160-0) 0.51 mg/dL 0.50-1.04 CALCIUM (test code = 0844080912) 8.7 mg/dL 8.6-10.6 eGFR (test code = 16218-5) 138.1 mL/min/1.73m2 CKD-EPI eGFR (2020). Assuming creatinine has been stable day-to-day for at least three months, the eGFR indicates Category G1 (>= 90 mL/min/1.73 m2) Lab Interpretation (test code = 33585-0) Abnormal [facility] WITH [id number] 19:57:50* Test Item Value Reference Range Interpretation [...] 34.5 g/dL 31.6-35.1 RDW-SD (test code = 69954-8) 40.2 fL 39.0-49.9 RDW-CV (test code = 788-0) 12.0 % 12.0-15.5 PLT (test code = 777-3) 257 166-358 MPV (test code = 32470-4) 11.6 fL 9.5-12.9 NRBC/100 WBC (test code = 7831551546) 0.0 0.0-10.0 NRBC x10^3 (test code = 6824222692) See_Comment [Automated messa ge] The system which generated this result transmitted reference range: 10*3/?L. The reference range was not used to interpret this result as normal/abnormal. GRAN MAT (NEUT) % (test code = 770-8) 67.8 % IMM GRAN % (test code = 8097606655) 0.30 % LYMPH % (test code = 736-9) 21.7 % MONO % (test code = 5905-5) 7.2 % EOS % (test code = 713-8) 2.2 % BASO % (test code = 706-2) 0.8 % GRAN MAT x10^3(ANC) (test code = 2707515914) 7.08 10*3/uL 1.88-7.09 IMM GRAN x10^3 (test code = 6764598460) 0.03 10*3/uL 0.00-0.06 LYMPH x10^3 (test code = 731-0) 2.26 10*3/uL 1.32-3.29 MONO x10^3 (test code = 742-7) 0.75 10*3/uL 0.33-0.92 EOS x10^3 (test code = 711-2) 0.23 10*3/uL 0.03-0.39 BASO x10^3 (test code = 704-7) 0.08 10*3/uL 0.01-0.07 H Lab Interpretation (test code = 66623-1) Abnormal [facility] [id number] 14:31:00* Test Item Value Reference Range Interpretation Comme nts POCT PREG (test code = 1605) Negative On board controls acceptable with C Line (test code = 3574) Yes POCT PREG LOT # (test code = 3575) POCT PREG TEST DATE ( test code = 3576) [facility] [id number] 19:55:00* Test Item Value Reference Range Interpretation Comme nts POCT PREG (test code = 1605) Negative On board controls acceptable with C Line (test code = 3574) Yes POCT PREG LOT # (test code = 3575) POCT PREG TEST DATE ( test code = 3576) [facility] [id number] 19:55:00* Test Item Value Reference Range Interpretation Comme nts POCT PREG (test code = 1605) Negative On board controls acceptable with C Line (test code = 3574) Yes POCT PREG LOT # (test code = 3575) POCT PREG TEST DATE ( test code = 3576) [facility] Notes Date/Time Note Provider Source 2023-06-11 13:51:40 Spoke with pt who verified name and . Pt c/o of red/itchy eyes with "busted blood vessels" in her eyes that she started to experience after surgery on 06/07/23. Pt reports she is having intermittent sharp pain in her eye that per pt "feels like I have glass in my eyes". Pt denies having any vision changes, blurry vision, or spots in her vision. Advised pt to do a wash-out at home, gave instructions and use OTC eye drops. Pt vu. Recommended for pt to follow-up with pcp and opthalmologist. Pt vu and reports that she will try and schedule an appt. Gave ER precautions pt vu and did not have any further questions at this time. Kelly Boggs RN [facility] 2023-06-11 13:03:38 Adina Saavedra is a 17 year old female patient calling since procedure has had red eyes from busted blood vessels, wanting to know if she can use eye drops and if so which ones. Please call [phone] [id number] [place] [id number] [address] Kerrie Clay [facility] 2023-06-09 16:36:00 Pt given printed and verbal discharge instructions regarding petechiae, conjunctival hemorrhage of both eyes, elevated blood pressure reading, acute cough, sore throat, encouraged hydration. Pt verbalized understanding of instructions, pt awake alert oriented, resp reg unlabored, skin w/d, color appropriate for race, moves all ext well,pt encouraged to follow up with pcp. Advised to seek medical attention for new/prolonged/worsening of symptoms. PIV d'cd, dressing to site, catheter in tact. Awake, alert oriented, resp reg unlabored, skin w/d, pt leaving amb with steady gait, in no apparent distress, accompanied by significant other. Charlotte Bergman RN [facility] 2023-06-09 13:58:19 Pt to ED CO rash s/p hysteroscopy and polypectomy. Pt presents with petechiae to face and eyes. Reports elevated blood pressure after surgery. Also CO generalized body aches. Alta Mcnally RN [facility] 2023-06-03 12:31:38 Spoke with OR posting and they do have availability Wednesday06/07/2023 at 1300. Per provider okay to change. Case moved up to 06/06. Pt notified via [employer]. T [facility] 2023-06-02 16:44:34 Attempted to call OR posting, no answer at this time, will attempt to call tomorrow morning to check availability. T [facility] 2023-06-02 15:29:56 Spoke with pt, pt identified by name and . Pt states she went to [facility] in [place] ER and was recommended to come in for an ER follow up due to polyp infection, pt was prescribed Doxycycline for the infection and just want to make sure everything looks good to move forward with surgery. [facility] 2023-06-02 14:41:11 Attempted to call pt on regarding her apt for tomorrow 06/13/2023, no answer at this time, left vm for pt to call back. [facility] 2023-05-25 13:13:18 Please see TE. [facility] 2023-05-25 13:07:48 Spoke with pt, pt identified by name and . Pt c/o of heavy menstrual gushes (5-6 episodes a day) that bleeds through extra heavy (level 6) sanitary pad, severe cramping 8.5-10 every time she has an episode and passing large clots since 05/21/2023. Pt states she hasn't taken anything for the pain. Pt declines dizziness or SOB. Pt advised to go to ER for evaluation due to the severity of symptoms and length of time she has been experiencing them. ER warnings reinforced, pt states she will go to ER for evaluation. [facility] 2023-05-25 12:31:21 Pt returning missed call from nurse. Please call and assist. [facility] 2023-05-21 14:45:00 Images from the original note were not included. Venipuncture collection performed by clean technique on the right anticubitus. Total of 1 attempts were made. Slight pressure and a bandage/dressing were applied to the site(s). The patient experienced no complications. 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
[2024-01-25 04:52] LABS: Specific Gravity > 1.030 (1.005-1.030)
[2024-01-25 04:55] LABS: Specific Gravity > 1.030 (1.005-1.030); Sqamous Epithelial 20-50 /HPF (None Seen); Urine Bacteria None Seen /HPF (<20); Urine Bilirubin NEGATIVE (Negative); Urine Blood 3+ (OVER) (Negative); Urine Clarity Extremely Turbid (Clear); Urine Color Brown (Yellow); Urine Culture Reflex Order NOT NEEDED; Urine Glucose NEGATIVE (Negative); Urine Ketones TRACE (Negative); Urine Micro Reflex YN NO BILL MICROSCOPIC; Urine Mucus Slight /HPF (None Seen); Urine Nitrite NEGATIVE (Negative); Urine Protein 1+ (Negative); Urine RBC >50 /HPF (None Seen); Urine Urobilinogen Normal (Normal); Urine WBC 20-50 /HPF (<5)
--- NOTE | 2024-01-25 05:01 | ER ---
Nurse's Notes [facility] Name: Rosa Saavedra Age: 18 yrs Sex: Female : 2005 Arrival Date: 01/25/2024 Time: 03:51 Bed 4 Private MD: Diagnosis: UTI/ Urinary tract infection, site not specified Presentation: 01/24 04:20 Chief complaint: Patient states: WOKE UP WITH SOME BLOOD CLOTS, THOUGHT IT WAS FROM MY vc1 PERIOD BUT IT TURNS OUT IT WAS MY PEE. IT KESSLER WHEN I PEE AND I AM PEEING EVERY HOUR. Coronavirus screen: Client denies travel out of the [place] in the last 14 days. At this time, the client does not indicate any symptoms associated with coronavirus-19. Ebola Screen: Patient negative for fever greater than or equal to 101.5 degrees Fahrenheit, and additional compatible Ebola Virus Disease symptoms Patient denies exposure to infectious person. Patient denies travel to an Ebola-affected area in the 21 days before illness onset. No symptoms or risks identified at this time. Initial Sepsis Screen: Does the patient meet any 2 criteria? No. Patient's initial sepsis screen is negative. Does the patient have a suspected source of infection? No. Patient's initial sepsis screen is negative. Risk Assessment: Do you want to hurt yourself or someone else? Patient reports no desire to harm self or others. Onset of symptoms was January 24, 2024. 04:20 Method Of Arrival: Ambulatory vc1 04:20 Acuity: SUSANNAH 4 vc1 Triage Assessment: 04:23 General: Appears in no apparent distress. uncomfortable, obese, well developed, well vc1 nourished, Behavior is calm, cooperative, appropriate for age. Pain: Complains of pain in suprapubic area, right inguinal area and left inguinal area Pain does not radiate. Pain currently is 8 out of 10 on a pain scale. Quality of pain is described as burning. EENT: No deficits noted. No signs and/or symptoms were reported regarding the EENT system. Neuro: Level of Consciousness is awake, alert, obeys commands. Cardiovascular: Capillary refill < 3 seconds Patient's skin is warm and dry. Respiratory: Airway is patent Respiratory effort is even, unlabored, Respiratory pattern is regular, symmetrical. GI: Abdomen is round non-distended. : Reports burning with urination, pain in bilateral in suprapubic area lower quadrant(s) with urination, urinary frequency, vaginal bleeding that is. Derm: Skin is intact, is healthy with good turgor, Skin is dry, Skin is normal, Skin temperature is warm. Musculoskeletal: Circulation, motion, and sensation intact. Range of motion: intact in all extremities. 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 - Infectious Disease History:: Denies. - Social history:: Smoking status: Reported history of juuling and/or vaping. - Family history:: not pertinent. Screenin:22 [facility] ED Fall Risk Assessment (Adult) History of falling in the last 3 months, vc1 including since admission No falls in past 3 months (0 pts) Confusion or Disorientation No (0 pts) Intoxicated or Sedated No (0 pts) Impaired Gait No (0 pts) Mobility Assist Device Used No (0 pt) Altered Elimination No (0 pt) Score/Fall Risk Level 0 - 2 = Low Risk Oriented to surroundings, Maintained a safe environment, Educated pt \T\ family on fall prevention, incl call for assistance when getting out of bed. Abuse screen: Denies threats or abuse. Nutritional screening: No deficits noted. Tuberculosis screening: No symptoms or risk factors identified. Assessment: 04:39 General: Appears in no apparent distress. uncomfortable, Behavior is calm, cooperative. al5 Pain: Complains of pain in left inguinal area and right inguinal area and suprapubic area Pain currently is 8 out of 10 on a pain scale. Neuro: Level of Consciousness is awake, alert, obeys commands, Oriented to person, place, time, situation. Cardiovascular: Capillary refill < 3 seconds Patient's skin is warm and dry. Respiratory: Airway is patent Respiratory effort is even, unlabored, Respiratory pattern is regular, symmetrical. GI: Abdomen is non-distended, obese, Reports lower abdominal pain. : Reports burning with urination, pain in bilateral in suprapubic area lower quadrant(s) with urination, Pain is 8 out of 10 on a pain scale. EENT: No signs and/or symptoms were reported regarding the EENT system. Derm: Skin is intact, is healthy with good turgor, Skin is pink, warm \T\ dry. normal. Musculoskeletal: No signs and/or symptoms reported regarding the musculoskeletal system. Vital Signs: 04:20 BP 145 / 107; Pulse 74; Resp 18; Temp 98.14; Pulse Ox 100% ; Weight 127.01 kg; Height 5 vc1 ft. 11 in. ; Pain 8/10; 05:09 BP 138 / 77; Pulse 74; Resp 16; Pulse Ox 99% on R/A; al5 04:20 Body Mass Index 39.05 (127.01 kg, 180.34 cm) vc1 04:20 Pain Scale: Adult vc1 ED Course: 03:54 Patient arrived in ED. [email or web address] 03:55 Matt Mcdonald MD is Attending Physician. rt 04:22 Triage completed. vc1 04:22 Arm band placed on right wrist. vc1 04:23 Patient has correct armband on for positive identification. Bed in low position. Call vc1 light in reach. Adult w/ patient. Provided Education on: CALL LIGHT. Pulse ox on. NIBP on. 04:25 No provider procedures requiring assistance completed. vc1 04:38 Shanika Pisano, SAYRA is Primary Nurse. al5 05:09 Patient did not have IV access during this emergency room visit. al5 Administered Medications: No medications were administered Medication: 04:22 VIS not applicable for this client. vc1 Outcome: 05:01 Discharge ordered by . rt 05:09 Discharged to home ambulatory, with significant other, al5 05:09 Condition: good 05:09 Discharge instructions given to patient, Instructed on discharge instructions, follow up and referral plans. medication usage, Demonstrated understanding of instructions, follow-up care, medications, Prescriptions given X 1, 05:10 Patient left the ED. al5 Signatures: Keisha Cutler [email or web address] Kelly Dickinson RN RN vc1 Matt Mcdonald MD MD rt Shanika Pisano RN RN al5
--- NOTE | 2024-01-25 05:01 | EDPHYS ---
Physician Documentation [facility] Name: Rosa Saavedra Age: 18 yrs Sex: Female : 2005 Arrival Date: 01/25/2024 Time: 03:51 Bed 4 Private MD: ED Physician Matt Mcdonald HPI: 01/24 04:29 This 18 yrs old Female presents to ER via Ambulatory with complaints of Urinary rt Incontinence. 04:29 Patient presents to the ED with 2 to 3 days of dysuria, urinary frequency, states that rt the symptoms have been worsening tonight. Denies other acute complaints at this time, symptoms are moderate in severity, no other aggravating or alleviating factors.. 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 - Infectious Disease History:: Denies. - Social history:: Smoking status: Reported history of juuling and/or vaping. - Family history:: not pertinent. ROS: 04:29 Constitutional: Negative for fever, chills, and weight loss, Cardiovascular: Negative rt for chest pain, palpitations, and edema, Respiratory: Negative for shortness of breath, cough, wheezing, and pleuritic chest pain, Abdomen/GI: Negative for abdominal pain, nausea, vomiting, diarrhea, and constipation, MS/Extremity: Negative for injury and deformity, Skin: Negative for injury, rash, and discoloration, 04:29 : Positive for urinary frequency, burning with urination, Exam: 04:29 Constitutional: This is a well developed, well nourished patient who is awake, alert, rt and in no acute distress. Head/Face: Normocephalic, atraumatic. Chest/axilla: Normal chest wall appearance and motion. Nontender with no deformity. No lesions are appreciated. Cardiovascular: Regular rate and rhythm with a normal S1 and S2. No gallops, murmurs, or rubs. Normal PMI, no JVD. No pulse deficits. Respiratory: Lungs have equal breath sounds bilaterally, clear to auscultation and percussion. No rales, rhonchi or wheezes noted. No increased work of breathing, no retractions or nasal flaring. Abdomen/GI: Soft, non-tender, with normal bowel sounds. No distension or tympany. No guarding or rebound. No evidence of tenderness throughout. Skin: Warm, dry with normal turgor. Normal color with no rashes, no lesions, and no evidence of cellulitis. MS/ Extremity: Pulses equal, no cyanosis. Neurovascular intact. Full, normal range of motion. Neuro: Awake and alert, GCS 15, oriented to person, place, time, and situation. Cranial nerves II-XII grossly intact. Motor strength 5/5 in all extremities. Sensory grossly intact. Cerebellar exam normal. Normal gait. Vital Signs: 04:20 BP 145 / 107; Pulse 74; Resp 18; Temp 98.14; Pulse Ox 100% ; Weight 127.01 kg; Height 5 vc1 ft. 11 in. ; Pain 8/10; 05:09 BP 138 / 77; Pulse 74; Resp 16; Pulse Ox 99% on R/A; al5 04:20 Body Mass Index 39.05 (127.01 kg, 180.34 cm) vc1 04:20 Pain Scale: Adult vc1 MDM: 04:19 Medical Screening Exam initiated rt 05:02 Differential Diagnosis UTI, dysuria. Data reviewed: vital signs, nurses notes, lab test rt result(s). Test considered but Not performed: CT: Symptoms not consistent with Anton, ureteral stone, CT scan not indicated. Counseling: I had a detailed discussion with the patient and/or guardian regarding the historical points, exam findings, and any diagnostic results supporting the discharge/admit diagnosis, lab results, the need for outpatient follow up, to return to the emergency department if symptoms worsen or persist or if there are any questions or concerns that arise at home. 01/24 04:23 Order name: LYNNETTE; Complete Time: :57 rt 01/24 04:23 Order name: SUZIEU; Complete Time: :57 rt Administered Medications: No medications were administered Disposition Summary: 01/25/24 05:01 Discharge Ordered Notes: Location: Home rt Problem: new rt Symptoms: are unchanged rt Condition: Stable rt Diagnosis - UTI/ Urinary tract infection, site not specified rt Followup: rt - With: Private Physician - When: 2 - 3 days - Reason: Discharge Instructions: - Discharge Summary Sheet rt - Urinary Tract Infection, Adult rt Forms: - Medication Reconciliation Form rt - Antibiotic Education rt - Prescription Opioid Use rt - Patient Portal Instructions rt - Leadership Thank You Letter rt - Work release form al5 Prescriptions: - cefpodoxime 200 mg Oral tablet - take 1 tablet ORAL route every 12 hours with food; 14 tablet; Refills: 0, rt Product Selection Permitted Signatures: Dispatcher [employer] Kelly Levine RN RN vc1 Matt Mcdonald MD MD rt
[2024-01-25 05:52] VITALS: BP 138/77; O2SAT 99
== END 2024-01-25 05:10 | disposition home or self-care (01) ==
LOC: ER 03:51
DX: N39.0 Urinary tract infection, site not specified (principal)
CPT/HCPCS: 81001; 81025

== ENCOUNTER 2024-02-08 01:20 | Emergency (ER) | payer BC ==
--- OUTSIDE RECORDS SUMMARY | 2024-02-08 01:22 | XMS REPORT | Continuity of Care Document ---
Author Name Unknown Address [address] [facility] [address] [place] [address] [facility] Address [address] [facility] [address] [place] [address] Care Team Providers Care Senior Loan Processor Name Role Phone PCP, PATIENT DOES NOT HAVE A Primary Care Physic reyes Unavailable JAMES PEREZ Attending Clinician Unavailable La Mueller Attending Clinician Unavailable NEO MADRID Attending Clinician UnavailNeo Troy Attending Clinician [phone] James Perez MD Attending Clinician [phone] CHARLIE ANGEL Attending Clinician Unavailable Charlie Laughlin Attending Clinician [facility] Attending Clinician Unavailable JAMES PEREZ Admitting Clinician Unavailable Payers Payer Name Policy Type Policy Number Effective Date Expirati on Date Source [employer] FED SELECT [id number] 2019 00:00:00 Problems Condition Name Condition Details Condition Category Status Onset Date Resolution Date Last Treatment Date Treating Clinician Comments Source Obesity (BMI 30-39.9) Obesity (BMI 30-39.9) Disease Active 06-06 00:00: 00 [facility] 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 - 00:00: 00 [facility] Pelvic pain Pelvic pain Disease Active 05-23 00:00: 00 [facility] [id number] Vapes nicotine containing substance Problem [facility] Obese class II Body mass index (BMI) of 35 Problem [facility] [id number] Mild intermitte nt asthma without complicati on Problem [facility] [id number] Chronic tonsilliti s Problem [facility] Tobacco user Vaping nicotine dependence , tobacco product Problem [facility] [id number] Irregular periods Problem [facility] Allergies, Adverse Reactions, Alerts Allergy Name Allergy Type Status Severity Reaction(s) Onset Date Inactive Date Treating Clinician Comments Source Amoxicil bita Propensi ty to adverse reaction s Active Unknown - See comments 05-20 00:00: 00 [facility] Clarithr omycin Propensi ty to adverse reaction s Active Palpitations - 00:00: 00 [facility] CLARITHR OMYCIN DRUG INGREDI Active Palpitations 05-20 00:00: 00 [facility] AMOXICIL BITA DRUG INGREDI Active Unknown-Cmnt 05-20 00:00: 00 [facility] clarithr omycin clarithr omycin Active , vomiting, high blood pressure [facility] NO KNOWN ALLERGIE S Drug Class Active [facility] Social History Social Habit Start Date Stop Date Quantity Comments Source History of tobacco use Cigarette Smoker [facility] of Social function 2023-06-07 00:00:00 2023-06-07 00:00:00 [facility] Tobacco use and exposure 2023-06-04 00:00:00 2023-06-04 00:00:00 Smokeless tobacco non-user [facility] Tobacco Comment 2023-06-04 00:00:00 2023-06-04 00:00:00 Vapes [facility] Sex assigned at 2005 00:00:00 2005 00:00:00 [facility] Smoking Status Start Date Stop Date Source Tobacco smoking consumption unknown [facility] Smokes tobacco daily 2023-06-04 00:00:00 [facility] Light tobacco smoker 2022-11-03 00:00:00 [facility] Medications Ordered Medication Name Filled Medication Name Start Date Stop Date Current Medication? Ordering Clinician Indication Dosage Frequency Signature (SIG) Comments Components Source levonorgest reL (MIRENA) IUD 1 Device 07-22 23:00: 00 07-22 22:05 :00 No [id number] 1{devic e} 1 Device, Intrauteri ne, ONCE, 1 dose, On Wed07/23/23 at 1800, Routine [facility] nystatin-tr iamcinolone cream 07-22 00:00: 00 07-30 04:59 :00 No [id number] Apply to area(s) 2 (two) times daily for 7 days. [facility] phenoL (CHLORASEPT IC THROAT SPRAY) 1.4 % spray 06-08 00:00: 00 Yes [id number] 1{spray } Take 1 [place] by mouth as needed for Sore throat. [facility] albuterol (PROVENTIL) 2.5 mg /3 mL (0.083 %) nebulizer solution 2.5 mg 06-06 19:30: 00 06-06 18:51 :00 No 2.5mg 2.5 mg, Inhalation , ONCE, 1 dose, On Wed06/07/23 at 1430, Routine [facility] acetaminoph en (TYLENOL) tablet 650 mg 06-06 18:49: 36 06-06 22:08 :22 No 650mg 650 mg, Oral, PRN, 1 dose, Starting on Wed06/07/23 at 1349, Until Wed06/07/23 at 1708, Routine, Pain (scale 1-3), [facility]SU Recovery [facility] ibuprofen (IBU) tablet 800 mg 06-06 18:49: 36 06-06 22:08 :22 No 800mg 800 mg, Oral, PRN, 1 dose, Starting on Wed06/07/23 at 1349, Until Wed06/07/23 at 1708, Routine, Pain (scale 4-6), DSU Recovery [facility] HYDROcodone -acetaminop hen (NORCO 5) 5-325 mg tablet 1 tablet 06-06 18:45: 00 06-06 18:57 :00 No 1{tbl} 1 tablet, Oral, ONCE, 1 dose, On Wed06/07/23 at 1345, Routine [facility] HYDROmorphO ne (DILAUDID) injection 0.2 mg 06-06 18:36: 59 06-06 22:08 :22 No .2mg 0.2 mg, Slow IV Push, Q5MIN PRN, 10 doses, Starting on Wed06/07/23 at 1336, Until Wed06/07/23 at 1708, Routine, Pain (scale 7-10)
U se approved by (Faculty): PACU USE -ANESTHESI A SERVICE-HY DROMORPHON E INJECTIONS [facility] FENTanyl PF (SUBLIMAZE (PF)) injection 25 mcg 06-06 18:36: 59 06-06 22:08 :22 No 25ug 25 mcg, Slow IV Push, Q5MIN PRN, 4 doses, Starting on Wed06/07/23 at 1336, Until Wed06/07/23 at 1708, Routine, Pain (scale 4-6) [facility] ondansetron (ZOFRAN (PF)) injection 4 mg 06-06 18:36: 59 06-06 22:08 :22 No 4mg 4 mg, Slow IV Push, PRN, 1 dose, Starting on Wed06/07/23 at 1336, Until Wed06/07/23 at 1708, Routine, Nausea and Vomiting (N/V) [facility] ferric subsulfate (MONSEL'S) solution 06-06 18:28: 00 06-06 18:49 :28 No PRN, Starting on Wed06/07/23 at 1328, Until Wed06/07/23 at 1349, Routine, Intra-op [facility] ibuprofen 600 mg tablet 06-06 00:00: 00 Yes [id number] 600mg Take 1 tablet by mouth every 6 (six) hours as needed for Pain (scale 4-6) or Pain (scale 1-3). [facility] acetaminoph en (TYLENOL) 325 mg tablet 06-06 00:00: 00 06-07 04:59 :00 No [id number] 650mg Take 2 tablets by mouth every 6 (six) hours as needed for Alternate with ibuprofen for pain scale 4-6 or Alternate with ibuprofen for pain scale 1-3. [facility] valACYclovi r (VALTREX) 500 mg tablet 05-20 00:00: 00 Yes [id number] 500mg Take 1 tablet by mouth in the morning and 1 tablet in the evening. For 3 days with onset of lesion [facility] albuterol 2.5 mg/0.5 mL nebulizer solution 03-17 00:00: 00 Yes INHALE 1 VIAL IN NEBULIZER EVERY 4 HOURS NEEDED CONGESTION [facility] Flovent HFA 110 MCG/ACT Flovent HFA [...] Comments Source Pediarix (dtap/hep B/ipv) Unknown Completed [facility] Pneumococcal 7 Conjugate, PCV7 (Prevnar7) Unknown Completed [facility] Hep B, Adol or Pedi Dosage Unknown Completed [facility] HIB 4 Dose Schedule Unknown Completed [facility] Pediarix (dtap/hep B/ipv) Unknown Completed [facility] Pneumococcal 7 Conjugate, PCV7 (Prevnar7) Unknown Completed [facility] Hep B, Adol or Pedi Dosage Unknown Completed [facility] HIB 4 Dose Schedule Unknown Completed [facility] Vital Signs Vital Name Observation Time Observation Value Comments S ource Systolic blood pressure 2023-07-23 16:12:00 127 mm[Hg] [facility] Diastolic blood pressure 2023-07-23 16:12:00 89 mm[Hg] [facility] Heart rate 2023-07-23 16:12:00 76 /min [facility] Body weight 2023-07-23 16:12:[address] [facility] Systolic blood pressure 2023-06-29 16:23:00 133 mm[Hg] [facility] Diastolic blood pressure 2023-06-29 16:23:00 83 mm[Hg] [facility] Heart rate 2023-06-29 16:23:00 85 /min [facility] Body temperature 2023-06-29 16:23:00 37 Priti [facility] Body weight 2023-06-29 16:23:[address] [facility] Systolic blood pressure 2023-06-09 20:43:00 133 mm[Hg] [facility] Diastolic blood pressure 2023-06-09 20:43:00 92 mm[Hg] [facility] Heart rate 2023-06-09 20:43:00 74 /min [facility] Respiratory rate 2023-06-09 20:43:00 19 /min [facility] Body temperature 2023-06-09 19:04:00 36.83 Priti [facility] Body height 2023-06-09 19:04:[address] [facility] Body weight 2023-06-09 19:04:[address] [facility] BMI 2023-06-09 19:04:00 39.68 kg/m2 [facility] Oxygen saturation in Arterial blood by Pulse oximetry 2023-06-09 19:04:00 100 /min [facility] Systolic blood pressure 2023-06-07 14:14:00 150 mm[Hg] [facility] Diastolic blood pressure 2023-06-07 14:14:00 90 mm[Hg] [facility] Heart rate 2023-06-07 14:14:00 78 /min [facility] Body temperature 2023-06-07 14:14:00 37.61 Priti [facility] Respiratory rate 2023-06-07 14:14:00 18 /min [facility] Body height 2023-06-07 14:14:[address] [facility] Body weight 2023-06-07 14:14:[address] [facility] BMI 2023-06-07 14:14:00 39.71 kg/m2 [facility] Oxygen saturation in Arterial blood by Pulse oximetry 2023-06-07 14:14:00 99 /min [facility] Systolic blood pressure 2023-05-21 19:42:00 132 mm[Hg] [facility] Diastolic blood pressure 2023-05-21 19:42:00 83 mm[Hg] [facility] Heart rate 2023-05-21 19:42:00 82 /min [facility] Body weight 2023-05-21 19:41:[address] [facility] height 2022-11-03 09:00:00 71.00 [in_i] Com mon [facility] weight 2022-11-03 09:00:00 252.4 [lb_av] Co mmon [facility] temperature 2022-11-03 09:00:00 97.2 [degF] Com mon [facility] bmi 2022-11-03 09:00:00 35.2 kg/m2 Commo n [facility] oximetry 2022-11-03 09:00:00 96 % Comm n [facility] respiratory rate 2022-11-03 09:00:00 16 /min [facility] blood pressure systolic 2022-11-03 09:00:00 120 mm[Hg] [facility] blood pressure diastolic 2022-11-03 09:00:00 68 mm[Hg] [facility] Procedures Procedure Date / Time Performed Performing Clinician Source POCT TEST 2023-07-23 16:56:00 Annabelle Madrid [facility] BASIC METABOLIC PANEL (NA, K, CL, CO2, GLUCOSE, BUN, CREATININE, CA) 2023-06-09 19:32:00 Charlie Angel [facility] CBC WITH DIFF 2023-06-09 19:32:00 [facility] 2023-06-09 19:32:00 Giana Angel [facility] ACTIVATED PARTIAL THRMPLAS ISRA[place] 2023-06-09 19:32:00 Charlie Angel [facility] HYSTEROSCOPY WITH DILATATION AND CURETTAGE 2023-06-07 16:52:00 James Perez [facility] POLYPECTOMY 2023-06-07 16:52:00 James Perez [facility] POCT TEST 2023-06-07 14:26:00 Margaret Berumen [facility] CONSENT/REFUSAL FOR DIAGNOSIS AND TREATMENT 2023-06-07 13:52:33 Doctor Unassigned, [place] [facility] ASSIGNMENT OF BENEFITS 2023-06-07 13:52:14 Docto r Unassigned, [place] [facility] POCT TEST 2023-05-21 00:00:00 Annabelle Madrid [facility] Encounters Start Date/Time End Date/Time Encounter Type Admission Type Attending Clinicians Care Facility Care Department Encounter ID Source 2023-05-26 10:30:34 Outpatient R JAMES PEREZ [facility] PROP CUTTER [id number] [facility] 2022-11-03 08:14:01 Outpatient La Mueller [facility] [id number] [facility] 2023-11-22 15:40:00 2023-11-22 15:40:00 Outpatient NEO HERRERA [facility] [id number] [facility] 2023-11-16 10:40:00 2023-11-16 10:40:00 Outpatient R NEO MADRID [facility] [id number] [facility] 2023-10-07 08:00:00 2023-10-07 08:00:00 Outpatient NEO HERRERA [facility] [id number] [facility] 2023-09-03 10:40:00 2023-09-03 10:40:00 Outpatient NEO HERRERA [facility] [id number] [facility] 2023-07-24 00:00:00 2023-07-27 11:40:09 Patient Secure Msg Neo [place] [facility] .[id number] 350.1.13.10 4.2.7.2.686 [id number] [facility] 2023-07-23 11:00:00 2023-07-23 12:10:56 Outpatient NEO HERRERA [facility] [id number] [facility] 2023-07-23 11:00:00 2023-07-23 12:10:56 Office Visit Neo [place] [facility] ..840.114 350.1.13.10 4.2.7.2.686 [id number] [facility] 2023-06-29 11:40:00 2023-06-29 13:11:17 Outpatient JAMES MALDONADO [facility] [id number] [facility] 2023-06-29 11:40:00 2023-06-29 13:11:17 Office Visit Eunice Perezvette [facility] 1.2840.114 350.1.13.10 4.2.7.2.686 [id number] [facility] 2023-06-11 00:00:00 2023-06-11 00:00:00 Telephone [place] [facility] 1.2840.114 350.1.13.10 4.2.7.2.686 [id number] [facility] 2023-06-09 14:07:00 2023-06-09 16:46:00 Emergency X CHARLIE ANGEL [facility] ERT [id number] [facility] 2023-06-09 14:07:00 2023-06-09 16:46:00 Emergency Raúl Charlie [facility] 1.840.114 350.1.13.10 4.2.7.2.686 [id number] [facility] 2023-06-07 08:51:00 2023-06-07 15:01:00 Outpatient R JAMES PEREZ [facility] PROP CUTTER [id number] [facility] 2023-06-07 11:14:00 2023-06-07 13:33:00 Surgery Andreia Pereze [facility] 1.2840.114 350.1.13.10 4.2.7.2.686 [id number] [facility] 2023-06-03 11:00:00 2023-06-03 11:00:00 Outpatient R NEO MADRID [facility] [id number] [facility] 2023-06-02 00:00:00 2023-06-02 00:00:00 Telephone [place] [facility] 1.2840.114 350.1.13.10 4.2.7.2.686 [id number] [facility] 2023-05-27 00:00:00 2023-05-27 00:00:00 Outpatient R JULIUSANNABELLEA [facility] [id number] [facility] 2023-05-25 00:00:00 2023-05-25 00:00:00 Telephone [place] [facility] 1.2.840.114 350.1.13.10 4.2.7.2.686 [id number] [facility] 2023-05-24 00:00:00 2023-05-24 00:00:00 Prep For Surgery James Perez [facility] 1.2.840.114 350.1.13.10 4.2.7.2.686 [id number] [facility] 2023-05-22 00:00:00 2023-05-22 00:00:00 Patient Secure Msg [place] [facility] 1.2.840.114 350.1.13.10 4.2.7.2.686 [id number] [facility] 2023-05-21 14:45:00 2023-05-21 15:00:00 Kiln Drawer Visit [facility] 1.2840.114 350.1.13.10 4.2.7.2.686 [id number] [facility] 2023-05-21 13:40:00 2023-05-21 14:40:31 Outpatient R NEO MADRID [facility] [id number] [facility] 2023-05-21 13:40:00 2023-05-21 14:40:31 Office Visit [place] [facility] 1.2840.114 350.1.13.10 4.2.7.2.686 [id number] [facility] 2022-11-03 00:00:00 2022-11-03 00:00:00 OFFICE VISIT NEW PT LEVEL 3 STLMLC STLMLC [id number] [facility] Results Test Description Test Time Test Comments Results Result Co mments Source [id number] 16:56:00* Test Item Value Reference Range Interpretation Comme [facility] POCT PREG (test code = 1605) Negative On board controls acceptable with C Line (test code = 3574) Yes POCT PREG LOT # (test code = 3575) POCT PREG TEST DATE ( test code = 3576) [facility] [id number] 16:56:00* Test Item Value Reference Range Interpretation Comme [facility] POCT PREG (test code = 1605) Negative On board controls acceptable with C Line (test code = 3574) Yes POCT PREG LOT # (test code = 3575) POCT PREG TEST DATE ( test code = 3576) [facility] / [id number] 20:37:58* Test Item Value Reference Range Interpretation Comme [facility] PROTIME PATIENT (test code = 5964-2) 10.8 10.1-12.6 INR (test code = 6301-6) 0.9 Normal INR <1.1; Warfarin Therapeutic range 2.0 to 3.0 or 2.5 to 3.5, depending upon the indications. Lab Interpretation (test code = 01534-6) Normal [facility] THRM[facility]AS [id number] 20:37:58* Test Item Value Reference Range Interpretation Comme [facility] APTT Patient (test code = 3173-2) 32 26-36 EDILMA (test code = EDILMA) The [facility] patient population mean normal value for aPTT is 30 seconds. Lab Interpretation (test code = 89968-9) Normal [facility] (NA, K, CL, CO2, GLUCOSE, BUN, CREATININE, CA)2023-06-09 20:01:51* Test Item Value Reference Range Interpretation Comme [facility] NA (test code = 7642353251) 139 mmol/L 135-145 K (test code = 5205151136) 4.1 mmol/L 3.5-5.0 CL (test code = 0574336934) 112 mmol/L 98-108 H CO2 TOTAL (test code = 4485141562) 19 mmol/L 23-31 L AGAP (test code = 9558083262) 8 2-16 BUN (test code = 4255635123) 15 mg/dL 7-23 GLUCOSE (test code = 2740940617) 89 mg/dL 70-110 CREATININE (test code = 2160-0) 0.51 mg/dL 0.50-1.04 CALCIUM (test code = 0106772196) 8.7 mg/dL 8.6-10.6 eGFR (test code = 17508-4) 138.1 mL/min/1.73m2 CKD-EPI eGFR (2020). Assuming creatinine has been stable day-to-day for at least three months, the eGFR indicates Category G1 (>= 90 mL/min/1.73 m2) Lab Interpretation (test code = 29399-6) Abnormal [facility] WITH [id number] 19:57:50* Test Item Value Reference Range Interpretation [...] 34.5 g/dL 31.6-35.1 RDW-SD (test code = 29871-9) 40.2 fL 39.0-49.9 RDW-CV (test code = 788-0) 12.0 % 12.0-15.5 PLT (test code = 777-3) 257 166-358 MPV (test code = 39756-6) 11.6 fL 9.5-12.9 NRBC/100 WBC (test code = 2060863058) 0.0 0.0-10.0 NRBC x10^3 (test code = 8386021717) See_Comment [Automated messa ge] The system which generated this result transmitted reference range: 10*3/?L. The reference range was not used to interpret this result as normal/abnormal. GRAN MAT (NEUT) % (test code = 770-8) 67.8 % IMM GRAN % (test code = 3845223271) 0.30 % LYMPH % (test code = 736-9) 21.7 % MONO % (test code = 5905-5) 7.2 % EOS % (test code = 713-8) 2.2 % BASO % (test code = 706-2) 0.8 % GRAN MAT x10^3(ANC) (test code = 5619263761) 7.08 10*3/uL 1.88-7.09 IMM GRAN x10^3 (test code = 2430885798) 0.03 10*3/uL 0.00-0.06 LYMPH x10^3 (test code = 731-0) 2.26 10*3/uL 1.32-3.29 MONO x10^3 (test code = 742-7) 0.75 10*3/uL 0.33-0.92 EOS x10^3 (test code = 711-2) 0.23 10*3/uL 0.03-0.39 BASO x10^3 (test code = 704-7) 0.08 10*3/uL 0.01-0.07 H Lab Interpretation (test code = 92817-6) Abnormal [facility] [id number] 14:31:00* Test Item Value Reference Range Interpretation Comme nts POCT PREG (test code = 1605) Negative On board controls acceptable with C Line (test code = 3574) Yes POCT PREG LOT # (test code = 3575) POCT PREG TEST DATE ( test code = 3576) [facility] [id number] 19:55:00* Test Item Value Reference Range Interpretation Comme nts POCT PREG (test code = 1605) Negative On board controls acceptable with C Line (test code = 3574) Yes POCT PREG LOT # (test code = 3575) POCT PREG TEST DATE ( test code = 3576) [facility] [id number] 19:55:00* Test Item Value Reference Range Interpretation Comme nts POCT PREG (test code = 1605) Negative On board controls acceptable with C Line (test code = 3574) Yes POCT PREG LOT # (test code = 3575) POCT PREG TEST DATE ( test code = 3576) [facility] Notes Date/Time Note Provider Source [...] questions at this time. Kelly Boggs RN [facility] 2023-06-11 13:03:38 Adina Saavedra is a 17 year old female patient calling since procedure has had red eyes from busted blood vessels, wanting to know if she can use eye drops and if so which ones. Please call [phone] [facility]/pharmacy #[id number] [place] [address] [address] Kerrie Clay [facility] 2023-06-09 16:36:00 Pt given printed and verbal [...] apparent distress, accompanied by significant other. Charlotte Bermgan RN [facility] 2023-06-09 13:58:19 Pt to ED CO rash s/p hysteroscopy and polypectomy. Pt presents with petechiae to face and eyes. Reports elevated blood pressure after surgery. Also CO generalized body aches. Alta Mcnally RN [facility] 2023-06-03 12:31:38 Spoke with OR posting and they do have availability Wednesday06/07/2023 at 1300. Per provider okay to change. Case moved up to 06/06. Pt notified via [employer]. T [facility] 2023-06-02 16:44:34 Attempted to call OR posting, no answer at this time, will attempt to call tomorrow morning to check availability. T [facility] 2023-06-02 15:29:56 Spoke with pt, pt identified by name and . Pt states she went to [facility] in [place] [facility] and was recommended to come in for an ER follow up due to polyp infection, pt was prescribed Doxycycline for the infection and just want to make sure everything looks good to move forward with surgery. [facility] 2023-06-02 14:41:11 Attempted to call pt on regarding her apt for tomorrow 06/13/2023, no answer at this time, left vm for pt to call back. [facility] 2023-05-25 13:13:18 Please see TE. [facility] 2023-05-25 13:07:48 Spoke with pt, [...] she will go to ER for evaluation. [facility] 2023-05-25 12:31:21 Pt returning missed call from nurse. Please call and assist. [facility] 2023-05-21 14:45:00 Images from the original note were not included. Venipuncture collection performed by clean technique on the right anticubitus. Total of 1 attempts were made. Slight pressure and a bandage/dressing were applied to the site(s). The patient experienced no complications. The following specimens were processed according to instructions and sent to [facility] laboratories LT [place] SST 2 [...] NIPT) URINE URINE CULTURE APTIMA URINE STOOL TIC TECHNOLOGIST [facility]
[2024-02-08] MEDS ORDERED: predniSONE 20 MG TAB ONE (02:11)
[2024-02-08 02:42] LABS: SARS-CoV-2 Antigen CONTROL BLUE LINE VIS/BG OK; SARS-CoV-2 Antigen Rapid Res Negative (Negative)
--- NOTE | 2024-02-08 03:12 | ER ---
Nurse's Notes [facility] Name: Rosa Saavedra Age: 18 yrs Sex: Female : 2005 Arrival Date: 02/08/2024 Time: 01:20 Bed 18 Private MD: Diagnosis: Unspecified asthma, uncomplicated Presentation: 02/07 02:10 Chief complaint: Patient states: cough, sore throat and wheezing x 2 days. Coronavirus kj2 screen: Client denies travel out of the [place] in the last 14 days. Ebola Screen: No symptoms or risks identified at this time. Initial Sepsis Screen: Does the patient meet any 2 criteria? No. Patient's initial sepsis screen is negative. Does the patient have a suspected source of infection? No. Patient's initial sepsis screen is negative. Risk Assessment: Do you want to hurt yourself or someone else? Patient reports no desire to harm self or others. Onset of symptoms was February 04, 2024. 02:10 Method Of Arrival: Ambulatory kj2 02:10 Acuity: SUSANNAH 3 kj2 Triage Assessment: 02:10 General: Appears in no apparent distress. Behavior is calm, cooperative. Pain: kj2 Complains of pain in throat Pain currently is 7 out of 10 on a pain scale. 02:55 EENT: Reports pain in throat. 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 - Infectious Disease History:: Denies. - Social history:: Smoking status: Patient denies any tobacco usage or history of. - Family history:: not pertinent. Screenin:10 [facility] ED Fall Risk Assessment (Adult) History of falling in the last 3 months, kj2 including since admission No falls in past 3 months (0 pts) Confusion or Disorientation No (0 pts) Intoxicated or Sedated No (0 pts) Impaired Gait No (0 pts) Mobility Assist Device Used No (0 pt) Altered Elimination No (0 pt) Score/Fall Risk Level 0 - 2 = Low Risk Maintained a safe environment, Hourly rounding (assess needs \T\ fall precautionary measures) done. Abuse screen: Denies threats or abuse. Denies injuries from another. Nutritional screening: No deficits noted. Tuberculosis screening: No symptoms or risk factors identified. Assessment: 02:10 General: see triage assessment. Respiratory: Airway is patent Respiratory effort is kj2 unlabored. EENT: Throat is pink. 03:31 Reassessment: Patient appears in no apparent distress at this time. Patient and/or kj2 family updated on plan of care and expected duration. Pain level reassessed. Patient is alert, oriented x 3, equal unlabored respirations, skin warm/dry/pink. 03:33 Respiratory: Breath sounds are clear bilaterally. kj2 Vital Signs: 02:10 BP 136 / 81; Pulse 87; Resp 20; Temp 98.2; Pulse Ox 98% on R/A; kj2 02:10 Weight 127.01 kg; Height 5 ft. 11 in. ; kj2 03:31 BP 138 / 89; Pulse 80; Resp 20; Temp 98.2; Pulse Ox 100% on R/A; kj2 02:10 Body Mass Index 39.05 (127.01 kg, 180.34 cm) kj2 ED Course: 01:22 Patient arrived in ED. jj6 01:23 Matt Mcdonald MD is Attending Physician. rt 01:42 Mona Duran, SAYRA is Primary Nurse. kj2 02:06 Strep Sent. kj2 02:06 SARS RAPID Sent. kj2 02:06 Influenza Screen (a \T\ B) Sent. kj2 02:10 Patient has correct armband on for positive identification. Bed in low position. Call kj2 light in reach. Adult w/ patient. Provided Education on: call light. 02:10 Arm band placed on Patient placed in an exam room. kj2 02:16 Chest Single View XRAY In Process Unspecified. EDMS 02:52 Triage completed. kj2 03:32 No provider procedures requiring assistance completed. Patient did not have IV access kj2 during this emergency room visit. Administered Medications: 02:22 Drug: predniSONE PO 40 mg PO once Route: PO; kj2 03:34 Follow up: Response: No adverse reaction kj2 Medication: 02:10 VIS not applicable for this client. kj2 Outcome: 03:12 Discharge ordered by . rt 03:34 Discharged to home ambulatory, kj2 03:34 Condition: stable 03:34 Discharge instructions given to patient, Instructed on discharge instructions, follow up and referral plans. medication usage, Demonstrated understanding of instructions, follow-up care, medications, Prescriptions given X 1, 03:39 Patient left the ED. kj2 Signatures: Dispatcher [employer] EDMS Keisha Cutler jj6 Matt Mcdonald MD MD rt Mona Duran RN RN kj2
--- NOTE | 2024-02-08 03:13 | EDPHYS ---
Physician Documentation [facility] Name: Rosa Saavedra Age: 18 yrs Sex: Female : 2005 Arrival Date: 02/08/2024 Time: 01:20 Bed 18 Private MD: ED Physician Matt Mcdonald HPI: 02/07 03:40 This 18 yrs old Female presents to ER via Ambulatory with complaints of Cough, Sore rt Throat, Asthma Exacerbation, Shortness Of Breath. 03:40 Patient presents to the ED with cough, sore throat, wheezing. The wheezing did improve rt after the patient took an albuterol treatment, states that she believes that the asthma is acting up. Denies other acute complaints at this time, symptoms are moderate severity, no other aggravating or elevating factors.. 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 - Infectious Disease History:: Denies. - Social history:: Smoking status: Patient denies any tobacco usage or history of. - Family history:: not pertinent. ROS: 03:40 Constitutional: Negative for fever, chills, and weight loss, Cardiovascular: Negative rt for chest pain, palpitations, and edema, Abdomen/GI: Negative for abdominal pain, nausea, vomiting, diarrhea, and constipation, MS/Extremity: Negative for injury and deformity, Skin: Negative for injury, rash, and discoloration, 03:40 ENT: Positive for rhinorrhea, sore throat, 03:40 Respiratory: Positive for cough, shortness of breath, wheezing, Exam: 03:40 Constitutional: This is a well developed, well nourished patient who is awake, alert, rt and in no acute distress. Head/Face: Normocephalic, atraumatic. Cardiovascular: Regular rate and rhythm with a normal S1 and S2. No gallops, murmurs, or rubs. Normal PMI, no JVD. No pulse deficits. Respiratory: Lungs have equal breath sounds bilaterally, clear to auscultation and percussion. No rales, rhonchi or wheezes noted. No increased work of breathing, no retractions or nasal flaring. Abdomen/GI: Soft, non-tender, with normal bowel sounds. No distension or tympany. No guarding or rebound. No evidence of tenderness throughout. Skin: Warm, dry with normal turgor. Normal color with no rashes, no lesions, and no evidence of cellulitis. MS/ Extremity: Pulses equal, no cyanosis. Neurovascular intact. Full, normal range of motion. 03:40 ENT: 2+ tonsils, no posterior pharyngeal erythema, moist mucous membranes. Vital Signs: 02:10 BP 136 / 81; Pulse 87; Resp 20; Temp 98.2; Pulse Ox 98% on R/A; kj2 02:10 Weight 127.01 kg; Height 5 ft. 11 in. ; kj2 03:31 BP 138 / 89; Pulse 80; Resp 20; Temp 98.2; Pulse Ox 100% on R/A; kj2 02:10 Body Mass Index 39.05 (127.01 kg, 180.34 cm) kj2 MDM: 01:48 Medical Screening Exam initiated rt 03:40 Differential Diagnosis: Other Pneumonia, asthma, viral syndrome, strep throat. Data rt reviewed: vital signs, nurses notes, lab test result(s), radiologic studies. I considered the following discharge prescriptions or medication management in the emergency department Medications were administered in the Emergency Department. See MAR. Independent interpretation of the following test(s) in the Emergency Department X-Ray: My interpretation is No infiltrate seen on interpretation of x-ray images. Care significantly affected by the following chronic conditions: Asthma. Counseling: I had a detailed discussion with the patient and/or guardian regarding the historical points, exam findings, and any diagnostic results supporting the discharge/admit diagnosis, lab results, radiology results, the need for outpatient follow up, to return to the emergency department if symptoms worsen or persist or if there are any questions or concerns that arise at home. Response to treatment: the patient's symptoms have markedly improved after treatment. 02/07 01:53 Order name: Influenza Screen (a \T\ B); Complete Time: 02:45 rt 02/07 01:53 Order name: SARS RAPID; Complete Time: 02:45 rt 02/07 01:53 Order name: Strep; Complete Time: 02:45 rt 02/07 02:45 Order name: Throat Culture EDMS 02/07 01:53 Order name: Chest Single View XRAY rt Administered Medications: 02:22 Drug: predniSONE PO 40 mg PO once Route: PO; kj2 03:34 Follow up: Response: No adverse reaction kj2 Disposition Summary: 02/08/24 03:12 Discharge Ordered Notes: Location: Home rt Problem: an acute exacerbation rt Symptoms: have improved rt Condition: Stable rt Diagnosis - Unspecified asthma, uncomplicated rt Followup: rt - With: Private Physician - When: 2 - 3 days - Reason: Discharge Instructions: - Discharge Summary Sheet rt - Asthma, Adult rt Forms: - Medication Reconciliation Form rt - Antibiotic Education rt - Prescription Opioid Use rt - Patient Portal Instructions rt - Leadership Thank You Letter rt Prescriptions: - Prednisone 20 mg Oral tablet - take 2 tablets ORAL route once daily; 8 tablet; Refills: 0, Product Selection rt Permitted Signatures: Dispatcher [employer] EDMatt Cruz MD MD rt Mona Duran RN RN kj2
--- NOTE | 2024-02-08 06:11 | RAD REPORT ---
EXAM: XR Chest, 1 View CLINICAL HISTORY: The patient is 18 years old and is Female; Cough. TECHNIQUE: Single view of the chest. COMPARISON: No relevant prior studies available. FINDINGS: Lungs: No pulmonary vascular congestion or consolidation. Pleural space: Unremarkable. No pneumothorax. Heart: Unremarkable. No cardiomegaly. Mediastinum: Unremarkable. Bones/joints: No acute fracture visualized. Upper abdomen: No free air in the visualized upper abdomen. IMPRESSION: No acute cardiopulmonary process identified. Electronically signed by: Gabi Lucio MD 02/08/2024 04:50 AM [facility] [place] Due to temporary technical issues with the PACS/[employer] reporting system, reports are being [place] d by the in-house radiologist without review as a courtesy to ensure prompt reporting the interpreting radiologist is fully responsible for the content of the report. Transcribed Date/Time: 02/08/2024 6:11 AM
[2024-02-08 10:34] VITALS: TEMP 98.2
[2024-02-08 10:36] VITALS: BP 138/89; O2SAT 100
== END 2024-02-08 03:39 | disposition home or self-care (01) ==
LOC: ER 01:20
DX: J45.909 Unspecified asthma, uncomplicated (principal); Z11.52 Encounter for screening for COVID-19
CPT/HCPCS: 87070; 36415; 87081; 87804 ×2; 71045; 99284; 87811; J7512